=== PATIENT | female | born 1980 | race Caucasian/White ===

== ENCOUNTER 2016-08-19 11:03 | Observation (INO) | payer OTHER ==
[2016-08-19] MEDS ORDERED: SODIUM CHLORIDE 0.9% 1,000 ML IV STA ×2 (11:28)
[2016-08-19 11:56] LABS: Basophils % (A) 0 %; CH 34.7; CHCM 33.5; Eosinophils # (A) 0.1 k/uL (0-0.7); Eosinophils % (A) 2 %; HCT 45.3 % (34.0-46.0); HDW 2.13; HGB 15.1 gm/dL (11.4-16.0); Luc # (Auto) 0.12; Luc % (Auto) 2; Lymphocytes # (A) 1.8 k/uL (1.0-4.8); Lymphocytes % (A) 28 %; MCH 34.5 pg (25.0-35.0); MCHC 33.2 g/dL (31.0-37.0); MCV 103.9 fL (80.0-100.0); Macrocytosis Slight; Mean Platelet Volume 6.8; Monocytes # (A) 0.3 k/uL (0-1.0); Monocytes % (A) 4 %; Neutrophils # (A) 4.2 k/uL (1.3-7.7); Neutrophils % (A) 64 %; RBC 4.36 m/uL (3.80-5.40); RDW 12.2 % (11.5-15.5); WBC 6.5 k/uL (3.8-10.6); WBC (Perox) 6.37
[2016-08-19 12:02] LABS: Appearance,Urine Cloudy (Clear); Bacteria,Urine Rare /hpf; Bilirubin,Urine Negative (Negative); Glucose,Urine (UA) Negative (Negative); Ketones,Urine Negative (Negative); Leukocyte Esterase,Urine Small (Negative); Mucus,Urine Occasional /hpf; Nitrite,Urine Negative (Negative); Particle Count 3040; Protein,Urine Trace (Negative); RBC,Urine 1 /hpf (0-5); Specific Gravity,Urine 1.022 (1.001-1.035); Squamous Epithelial Cell,Urine 3 /hpf (0-4); UA Billing (MACRO vs. MICRO) MICRO; Urobilinogen,Urine <2.0 mg/dL (<2.0); WBC,Urine 3 /hpf (0-5)
[2016-08-19 12:12] LABS: ALT 21 U/L (9-52); AST 21 U/L (14-36); Alkaline Phosphatase 63 U/L (38-126); Amylase 57 U/L (30-110); Anion Gap 9 mmol/L; Blood Urea Nitrogen 13 mg/dL (7-17); Calcium 9.1 mg/dL (8.4-10.2); Carbon Dioxide 26 mmol/L (22-30); Chloride 106 mmol/L (98-107); Glucose 102 mg/dL (74-99); Non-African American GFR(MDRD) >60 (>60 ml/min/1.73 sqM); Potassium 4.1 mmol/L (3.5-5.1); Sodium 141 mmol/L (137-145); Total Bilirubin 0.6 mg/dL (0.2-1.3); Total Protein 7.2 g/dL (6.3-8.2)
--- NOTE | 2016-08-19 12:40 | XR ---
EXAMINATION TYPE: XR abdomen 2V DATE OF EXAM ORDERED: 08/19/2016 HISTORY: abdominal pain. COMPARISON: None. FINDINGS: The abdominal gas pattern is normal. There is no evidence of obstruction or free air. Ther e is a questionable phlebolith in the right hemipelvis. IMPRESSION: NO ACUTE INTRA-ABDOMINAL ABNORMALITY.
--- NOTE | 2016-08-19 12:41 | ED ---
General Adult HPI - General Chief complaint: Abdominal Pain Stated complaint: side pain Time Seen by Provider: 08/19/16 11:17 Source: patient Mode of arrival: ambulatory Limitations: no limitations - History of Present Illness Initial comments: History of present illness and chief complaint this is a 35-year-old female here with complaint of abdominal pain toward the right lower quadrant for 3 days and getting worse. No nausea no vomiting no diarrhea. She has decreased appetite and she has had some sweats. Denies frequency urgency or dysuria. The urine to her does darker. - Related Data Home Medications Medication Instructions Recorded Confirmed Norgestimate-Ethinyl Estradiol 1 tab PO HS 08/19/16 08/19/16 [Mononessa 28 Tablet] Allergies Allergy/AdvReac Type Severity Reaction Status Date / Time No Known Allergies Allergy Verified 08/19/16 11:20 Review of Systems ROS Statement: Those systems with pertinent positive or pertinent negative responses have been documented in the HPI. Review of systems no headache no visual acuity changes no sore throat no chest pain or shortness of breath no flank pain. Her discomfort is to the right side of the abdomen as moved down slightly toward the right lower quadrant. No lower extremity pain no nausea vomiting or diarrhea. No neuro deficits. All systems are reviewed. Past medical problem significant for urinary tract infections and kidney stones in the past. Surgeries 1 and adhesions in the right lower quadrant had laparoscopic repair. Family history negative ALLERGIES none. Patient does smoke strongly encouraged stop denies alcohol use ROS Other: All systems not noted in ROS Statement are negative. Past Medical History Past Medical History: No Reported History History of Any Multi-Drug Resistant Organisms: None Reported Past Surgical History: Section Additional Past Surgical History / Comment(s): Abdominal Laproscopy Past Anesthesia/Blood Transfusion Reactions: No Reported Reaction Past Psychological History: No Psychological Hx Reported Smoking Status: Current every day smoker Past Alcohol Use History: None Reported Past Drug Use History: None Reported - Past Family History Father Family Medical History: No Reported History General Exam - General Exam Comments Initial Comments: General: The patient is awake and alert, complaining of right lower abdominal pain getting progressively worse over 3 days. Decreased appetite. No nausea no vomiting no diarrhea. Vital signs temp 97.5 pulse 93 respiratory rate 20 pulse ox 98% room air blood pressure 122/58. Eye: Pupils are equal, round and reactive to light, extra-ocular movements are intact ; there is normal conjunctiva bilaterally. No signs of icterus. Ears, nose, mouth and throat: There are moist mucous membranes and no oral lesions. Neck: The neck is supple, there is no tenderness, no anterior cervical lymphadenopathy , thyroid not enlarged. Cardiovascular: There is a regular rate and rhythm. No murmur, rub or gallop is appreciated. Respiratory: Lungs are clear to auscultation, respirations are non-labored, breath sounds are equal. No wheezes, stridor, rales, or rhonchi. Gastrointestinal: Abdomen is tender with palpation to the McBurney's point and lower. Denying nausea vomiting or diarrhea. She has had history of surgery for adhesions in this same area years ago. Voluntary guarding. Positive referred pain to the right lower quadrant, no rebound. No masses palpable. Denies vaginal discharge. Negative Santos sign Back: There is no tenderness to palpation in the midline. There is no obvious deformity. Musculoskeletal: Normal ROM, no tenderness, There is no pedal edema. There is no calf tenderness or swelling. Sensation intact. Pulses equal bilaterally 2+. Neurological: No complaint of any evidence of any neurological deficits. Skin: Skin is warm and dry and no rashes or lesions are noted. Psychiatric: Cooperative, appropriate mood & affect, normal judgment. Limitations: no limitations Course Vital Signs 08/19/16 08/19/16 11:05 15:23 Temperature 97.5 F L 98.2 F Pulse Rate 93 57 L Respiratory 20 16 Rate Blood Pressure 122/58 118/62 O2 Sat by Pulse 98 100 Oximetry Medical Decision Making - Medical Decision Making Medical decision making; patient's white count 6.5 hemoglobin 15 hematocrit of 45 deficits. 0.1 with a BUN 13 creatinine 0.7 with a GFR greater than 60. Plasma lactic acid normal 0.2. Urine showed 1 red 3 whites. Urine test negative. X-rays of the abdomen were done and reviewed by radiologist his impression is abdominal gas pattern is normal. There is no evidence of obstruction or free air. There is a questionable phlebolith in the right hemipelvis. Impression; no acute intra-abdominal abnormality. As read by Dr. Kaminski CT the abdomen was done without oral contrast because of high suspicion for kidney stone pain. The radiologist's findings include liver pain pancreas gallbladder adrenal glands all normal. Kidneys no masses are evident. No hydronephrosis present. No cysts are present. There is a 0.3 cm nonobstructing inferior pole renal stone on the left. Inferior vena cava normal. CT of the pelvis found the appendix was normal as visualized. Uterus appears normal, adnexal regions are normal. Multiple phleboliths within the pelvis. Osseous structuressuspicious lytic sclerotic lesions. Also loops of bowel within the abdomen and pelvis are normal. Studies without oral contrast and evaluation a few diverticuli may be present. Impression; 1) nonobstructing inferior pole left renal stone. 2) diverticulosis without acute diverticulitis. Reexamination of the patient still finds discomfort in the right lower abdomen well below McBurney's point. again no rebound or referred pain. Patient still has discomfort in that area. I discussed the case with Dr. Ellison, her [employer]. Patient will be admitted for observation to Dr. Ellison. - Lab Data Result diagrams: 08/19/16 11:42 08/19/16 11:42 Lab Results 08/19/16 08/19/16 08/19/16 Range/Units 11:42 11:42 11:42 WBC 6.5 (3.8-10.6) k/uL RBC 4.36 (3.80-5.40) m/uL Hgb 15.1 (11.4-16.0) gm/dL Hct 45.3 (34.0-46.0) % MCV 103.9 H (80.0-100.0) fL MCH 34.5 (25.0-35.0) pg MCHC 33.2 (31.0-37.0) g/dL RDW 12.2 (11.5-15.5) % Plt Count 256 (150-450) k/uL Neutrophils % 64 % Lymphocytes % 28 % Monocytes % 4 % Eosinophils % 2 % Basophils % 0 % Neutrophils # 4.2 (1.3-7.7) k/uL Lymphocytes # 1.8 (1.0-4.8) k/uL Monocytes # 0.3 (0-1.0) k/uL Eosinophils # 0.1 (0-0.7) k/uL Basophils # 0.0 (0-0.2) k/uL Macrocytosis Slight Sodium 141 (137-145) mmol/L Potassium 4.1 (3.5-5.1) mmol/L Chloride 106 (98-107) mmol/L Carbon Dioxide 26 (22-30) mmol/L Anion Gap 9 mmol/L BUN 13 (7-17) mg/dL Creatinine 0.71 (0.52-1.04) mg/dL Est GFR (MDRD) Af Amer >60 (>60 ml/min/1.73 sqM) Est GFR (MDRD) Non-Af >60 (>60 ml/min/1.73 sqM) Glucose 102 H (74-99) mg/dL Plasma Lactic Acid Juve (0.7-2.0) mmol/L Calcium 9.1 (8.4-10.2) mg/dL Total Bilirubin 0.6 (0.2-1.3) mg/dL AST 21 (14-36) U/L ALT 21 (9-52) U/L Alkaline Phosphatase 63 (38-126) U/L Total Protein 7.2 (6.3-8.2) g/dL Albumin 4.2 (3.5-5.0) g/dL Amylase 57 (30-110) U/L Lipase 85 (23-300) U/L Urine Color Urine Appearance (Clear) Urine pH (5.0-8.0) Ur Specific [place] (1.001-1.035) Urine Protein (Negative) Urine Glucose (UA) (Negative) Urine Ketones (Negative) Urine Blood (Negative) Urine Nitrite (Negative) Urine Bilirubin (Negative) Urine Urobilinogen (<2.0) mg/dL Ur Leukocyte Esterase (Negative) Urine RBC (0-5) /hpf Urine WBC (0-5) /hpf Ur Squamous Epith Cells (0-4) /hpf Urine Bacteria (None) /hpf Urine Mucus (None) /hpf Urine HCG, Qual Not Detected (Not Detectd) 08/19/16 08/19/16 Range/Units 11:42 11:42 WBC (3.8-10.6) k/uL RBC (3.80-5.40) m/uL Hgb (11.4-16.0) gm/dL Hct (34.0-46.0) % MCV (80.0-100.0) fL MCH (25.0-35.0) pg MCHC (31.0-37.0) g/dL RDW (11.5-15.5) % Plt Count (150-450) k/uL Neutrophils % % Lymphocytes % % Monocytes % % Eosinophils % % Basophils % % Neutrophils # (1.3-7.7) k/uL Lymphocytes # (1.0-4.8) k/uL Monocytes # (0-1.0) k/uL Eosinophils # (0-0.7) k/uL Basophils # (0-0.2) k/uL Macrocytosis Sodium (137-145) mmol/L Potassium (3.5-5.1) mmol/L Chloride (98-107) mmol/L Carbon Dioxide (22-30) mmol/L Anion Gap mmol/L BUN (7-17) mg/dL Creatinine (0.52-1.04) mg/dL Est GFR (MDRD) Af Amer (>60 ml/min/1.73 sqM) Est GFR (MDRD) Non-Af (>60 ml/min/1.73 sqM) Glucose (74-99) mg/dL Plasma Lactic Acid Juve 1.2 (0.7-2.0) mmol/L Calcium (8.4-10.2) mg/dL Total Bilirubin (0.2-1.3) mg/dL AST (14-36) U/L ALT (9-52) U/L Alkaline Phosphatase (38-126) U/L Total Protein (6.3-8.2) g/dL Albumin (3.5-5.0) g/dL Amylase (30-110) U/L Lipase (23-300) U/L Urine Color Yellow Urine Appearance Cloudy H (Clear) Urine pH 6.0 (5.0-8.0) Ur Specific [place] 1.022 (1.001-1.035) Urine Protein Trace H (Negative) Urine Glucose (UA) Negative (Negative) Urine Ketones Negative (Negative) Urine Blood Negative (Negative) Urine Nitrite Negative (Negative) Urine Bilirubin Negative (Negative) Urine Urobilinogen <2.0 (<2.0) mg/dL Ur Leukocyte Esterase Small H (Negative) Urine RBC 1 (0-5) /hpf Urine WBC 3 (0-5) /hpf Ur Squamous Epith Cells 3 (0-4) /hpf Urine Bacteria Rare H (None) /hpf Urine Mucus Occasional H (None) /hpf Urine HCG, Qual (Not Detectd) Disposition Clinical Impression: Abdominal pain Disposition: ADMITTED IP TO THIS HOSP Condition: Stable Referrals: Fran Henry III, MD [Primary Care Provider] - 1-2 days
[2016-08-19] MEDS ORDERED: KETOROLAC 30 MG/ML 1 ML VIAL IVP STA (13:04)
--- NOTE | 2016-08-19 13:44 | CT ---
EXAMINATION TYPE: CT abdomen pelvis wo con DATE OF EXAM: 08/19/2016 COMPARISON: NONE INDICATION: Rt sided pain DLP: 248.5 mGycm, Automated exposure control for dose reduction was used. CONTRAST: None Study performed without Oral Contrast TECHNIQUE: Axial images were obtained from above the diaphragm to the pubic rami in the axial plane a t 5 mm thick sections. Reconstructed images are reviewed on the computer in the coronal plane. FINDINGS: Limited CT sections are obtained the lung bases. The lung bases are clear. CT ABDOMEN: Liver: Normal Spleen: Normal Pancreas: Normal Adrenal glands: The adrenal glands are normal. Gallbladder: Normal Kidneys: No masses are evident. No hydronephrosis is present. No cysts are present. There is a 0.3 cm nonobstructing inferior pole renal stone on the left. Aorta: Normal Inferior vena cava: Normal. CT PELVIS: Loops of bowel within the abdomen and pelvis are normal. Studies without oral contrast limiting e valuation. A few diverticuli may be present. Appendix: Normal as visualized Urinary bladder: Decompressed limiting evaluation. Genitourinary structures: Uterus appears normal. Adnexal regions are normal. Multiple phleboliths wit hin the pelvis. Osseous structures: No suspicious lytic or sclerotic lesions. IMPRESSIONS: 1. Nonobstructing inferior pole left renal stone. 2. Diverticulosis without acute diverticulitis.
--- NOTE | 2016-08-19 15:19 | US ---
EXAMINATION TYPE: US pelvic complete DATE OF EXAM: 08/19/2016 COMPARISON: Previous study dated 04/17/2013. CLINICAL HISTORY: RLQ pain, hx R ovarian adhesions. Pelvic pain x 3 days, 1 , h/o ovarian c ysts TECHNIQUE: TV Date of LMP: 08/09/2016 EXAM MEASUREMENTS: Uterus: 9.1 x 5.3 x 4.9 cm Endometrial Stripe: 0.6 cm Right Ovary: 2.7 x 2.2 x 1.2 cm Left Ovary: 2.8 x 2.7 x 1.8 cm 1. Uterus: Anteverted wnl 2. Endometrium: wnl 3. Right Ovary: wnl 4. Left Ovary: wnl Spectral, color and waveform doppler imaging shows good arterial and venous flow within the ovaries ; there is no evidence for ovarian torsion. 5. Bilateral Adnexa: wnl 6. Posterior cul-de-sac: wnl IMPRESSION: NORMAL PELVIC ULTRASOUND.
[2016-08-19] MEDS ORDERED: NALOXONE 0.4 MG/ML 1 ML VIAL IV PRN (16:00)
[2016-08-19] MEDS ORDERED: ONDANSETRON 4 MG/2 ML VIAL IVP PRN (16:00)
--- NOTE | 2016-08-19 17:13 | P.HPOB ---
History of Present Illness H&P Date: 08/19/16 Chief Complaint: Right flank and lower quadrant pain This is a 35-year-old 2 para 2 woman with a 3 day history of right side and right lower abdominal pain. This has been progressively worsening which led her to present to the emergency room. She denies fevers or chills, nausea or vomiting. She initially had some dysuria 2 days ago however this has improved with oral hydration and cranberry juice. She denies blood in the stool or urine. Her menses are regular on an oral contraceptive pill and her last menstrual period was 1 week ago and she reports this was very normal. She denies vaginal bleeding or discharge. No new sexual partner or exposure. Evaluation in the emergency room was essentially negative. CT without contrast of abdomen and pelvis showed diverticulosis without evidence of diverticulitis and a left nonobstructing renal calculus. The appendix appeared normal on the scan. Transvaginal pelvic ultrasound also was entirely negative. There was no free fluid in the pelvis, no adnexal or ovarian abnormalities and the uterus appeared normal. Abdominal x-ray shows normal bowel gas pattern. Patient's gynecologic history is significant for a diagnostic laparoscopy over 10 years ago at which time she apparently had some pelvic adhesions that were addressed. She had a primary low transverse section in April 2015. Review of the operative report describes normal uterus, tubes and ovaries at that time without evidence of pelvic adhesions or abnormalities. Currently she describes her pain as involving the right flank and right mid abdomen and down into the right suprapubic region. Review of Systems Constitutional: Denies chills, Denies fever, Denies sweats Cardiovascular: Denies chest pain, Denies shortness of breath Respiratory: Denies cough Gastrointestinal: Reports abdominal pain, Denies BRBPR, Denies change in bowel habits, Denies diarrhea, Denies heartburn, Denies nausea, Denies vomiting Genitourinary: Reports dysuria, Denies abnormal vaginal bleeding, Denies dysmenorrhea, Denies genital sores, Denies urgency, Denies vaginal discharge Menstruation: Reports period normal Musculoskeletal: Reports low back pain Integumentary: Denies rash Neurological: Denies headaches Past Medical History Past Medical History: No Reported History History of Any Multi-Drug Resistant Organisms: None Reported Past Surgical History: Section Additional Past Surgical History / Comment(s): Abdominal Laproscopy Past Anesthesia/Blood Transfusion Reactions: No Reported Reaction Past Psychological History: No Psychological Hx Reported Smoking Status: Current every day smoker Past Alcohol Use History: None Reported Past Drug Use History: None Reported - Past Family History Father Family Medical History: No Reported History Medications and Allergies Home Medications Medication Instructions Recorded Confirmed Type Norgestimate-Ethinyl Estradiol 1 tab PO HS 08/19/16 08/19/16 History [Mononessa 28 Tablet] Allergies Allergy/AdvReac Type Severity Reaction Status Date / Time No Known Allergies Allergy Verified 08/19/16 11:20 Exam - Vital Signs Vital signs: Vital Signs Temp Pulse Resp BP Pulse Ox 08/19/16 15:23 98.2 F 57 L 16 118/62 100 08/19/16 11:05 97.5 F L 93 20 122/58 98 Intake and Output 08/19/16 08/19/16 08/19/16 06:59 14:59 22:59 Other: Weight 61.689 kg Patient Weight 08/20/16 06:59 Weight 61.689 kg This is a somewhat uncomfortable-appearing, female in no acute distress. HEENT exam is negative for palpable lymphadenopathy. The heart is a regular rate. The breathing is unlabored. Her abdomen is slim soft and nondistended. She has pain to palpation from the pubic symphysis to the right costal margin. There is no rebound or guarding. She has right CVA tenderness. There are no palpable masses. She has full range of motion in the extremities. No unusual rashes, swelling or edema of the extremities. Pelvic examination is deferred. Neurologically she is grossly intact with no focal deficits. Results Result Diagrams: 08/19/16 11:42 08/19/16 11:42 Abnormal Lab Results - Last 24 Hours (Table) 08/19/16 08/19/16 08/19/16 Range/Units 11:42 11:42 11:42 MCV 103.9 H (80.0-100.0) fL Glucose 102 H (74-99) mg/dL Urine Appearance Cloudy H (Clear) Urine Protein Trace H (Negative) Ur Leukocyte Esterase Small H (Negative) Urine Bacteria Rare H (None) /hpf Urine Mucus Occasional H (None) /hpf Microbiology - Last 24 Hours (Table) 08/19/16 11:42 Urine Culture - Preliminary Urine,Voided CT scan - abdomen: report reviewed CT scan - pelvis: report reviewed US - abdomen: report reviewed Assessment and Plan (1) Abdominal pain Narrative/Plan: Nonspecific right lower quadrant abdominal pain. Imaging is negative for evidence of acute appendicitis or gynecologic abnormality. She does have a remote history of pelvic adhesive disease in 2005. No evidence of adhesive disease at time of section one year ago. Plan at this point is for observation. We will repeat CBC this evening and in the morning to follow serial white blood cell count. Her urinalysis did show small leukocyte Estrace therefore we will treat for urinary tract infection. Status: Acute (2) Tobacco abuse Status: Acute
[2016-08-19 17:41] LABS: Basophils % (A) 1 %; CH 34.7; CHCM 32.5; Eosinophils # (A) 0.1 k/uL (0-0.7); Eosinophils % (A) 1 %; HCT 41.1 % (34.0-46.0); HDW 2.24; HGB 13.2 gm/dL (11.4-16.0); Luc # (Auto) 0.12; Luc % (Auto) 2; Lymphocytes # (A) 2.1 k/uL (1.0-4.8); Lymphocytes % (A) 34 %; MCH 34.4 pg (25.0-35.0); MCHC 32.1 g/dL (31.0-37.0); Macrocytosis Moderate; Mean Platelet Volume 7.8; Monocytes # (A) 0.3 k/uL (0-1.0); Monocytes % (A) 5 %; Neutrophils # (A) 3.4 k/uL (1.3-7.7); Neutrophils % (A) 57 %; RBC 3.84 m/uL (3.80-5.40); RDW 12.6 % (11.5-15.5); WBC (Perox) 6.09
[2016-08-19 17:52] VITALS: BMI 21.2
[2016-08-19] MEDS: Acetaminophen-Codeine 300-30mg TAB PO PRN (17:58)
[2016-08-19] MEDS: NICOTINE 14MG/24HR PATCH TRANSDERM SCH (18:27)
[2016-08-19] MEDS ORDERED: NORGESTIMATE-ETHINYL ESTRADIOL 1 EACH TABLET PO SCH (21:00)
[2016-08-19] MEDS: KETOROLAC 30 MG/ML 1 ML VIAL IVP PRN (21:01)
[2016-08-19] MEDS: NITROFURANTOIN MONOHYD/M-CRYST 100 MG CAP PO SCH (21:02)
[2016-08-19] MEDS: SODIUM CHLORIDE 0.9% 1,000 ML IV SCH (21:06)
[2016-08-20] MEDS: Acetaminophen-Codeine 300-30mg TAB PO PRN ×4 (00:06→23:58)
[2016-08-20] MEDS: SODIUM CHLORIDE 0.9% 1,000 ML IV SCH ×3 (06:12→23:59)
[2016-08-20] MEDS: KETOROLAC 30 MG/ML 1 ML VIAL IVP PRN ×3 (06:13→23:58)
[2016-08-20 07:23] LABS: Basophils % (A) 0 %; CH 33.9; CHCM 33.1; Eosinophils # (A) 0.1 k/uL (0-0.7); Eosinophils % (A) 2 %; HCT 37.8 % (34.0-46.0); HDW 2.18; HGB 12.5 gm/dL (11.4-16.0); Luc # (Auto) 0.13; Luc % (Auto) 2; Lymphocytes # (A) 2.5 k/uL (1.0-4.8); Lymphocytes % (A) 45 %; MCHC 33.1 g/dL (31.0-37.0); MCV 102.8 fL (80.0-100.0); Macrocytosis Slight; Mean Platelet Volume 7.2; Monocytes # (A) 0.2 k/uL (0-1.0); Monocytes % (A) 4 %; Neutrophils # (A) 2.6 k/uL (1.3-7.7); Neutrophils % (A) 46 %; RBC 3.68 m/uL (3.80-5.40); RDW 11.8 % (11.5-15.5); WBC 5.6 k/uL (3.8-10.6); WBC (Perox) 5.92
[2016-08-20] MEDS: NITROFURANTOIN MONOHYD/M-CRYST 100 MG CAP PO SCH ×2 (07:58→23:58)
[2016-08-20] MEDS: NICOTINE 14MG/24HR PATCH TRANSDERM SCH (07:58)
--- NOTE | 2016-08-20 07:59 | P.PN ---
Subjective Principal diagnosis: Right lower quadrant pain Complaining of nausea this morning, no vomiting. Her pain is a 3 out of 10 and still in the right flank and right lower quadrant. No hematuria or dysuria. No constipation or diarrhea. No abnormal vaginal bleeding or discharge. She does recall that she self treated with Keflex prior to presentation to the emergency room for symptoms of urinary tract infection. Objective - Vital Signs Vital signs: Vital Signs Temp 97.5 F L 08/20/16 06:18 Pulse 58 L 08/20/16 06:18 Resp 18 08/20/16 06:18 BP 111/71 08/20/16 06:18 Pulse Ox 99 08/19/16 21:14 Intake & Output 08/19/16 08/20/16 08/20/16 18:59 06:59 18:59 Intake Total 600 Balance 600 Weight 61.689 kg Intake: Oral 600 Other: # Voids 1 - Constitutional General appearance: Present: no acute distress - Respiratory Respiratory: bilateral: CTA - Cardiovascular Rhythm: regular - Gastrointestinal General gastrointestinal: Present: normal bowel sounds, soft, tenderness (In right lower quadrant and flank. No rebound or guarding. No suprapubic tenderness). Absent: distended - Psychiatric Psychiatric: Present: appropriate affect - Labs CBC & Chem 7: 08/20/16 07:07 08/19/16 11:42 Labs: Abnormal Lab Results - Last 24 Hours (Table) 08/19/16 08/19/16 08/19/16 Range/Units 11:42 11:42 11:42 RBC (3.80-5.40) m/uL MCV 103.9 H (80.0-100.0) fL Glucose 102 H (74-99) mg/dL Urine Appearance Cloudy H (Clear) Urine Protein Trace H (Negative) Ur Leukocyte Esterase Small H (Negative) Urine Bacteria Rare H (None) /hpf Urine Mucus Occasional H (None) /hpf 08/19/16 08/20/16 Range/Units 17:30 07:07 RBC 3.68 L (3.80-5.40) m/uL MCV 107.0 H 102.8 H (80.0-100.0) fL Glucose (74-99) mg/dL Urine Appearance (Clear) Urine Protein (Negative) Ur Leukocyte Esterase (Negative) Urine Bacteria (None) /hpf Urine Mucus (None) /hpf Microbiology - Last 24 Hours (Table) 08/19/16 11:42 Urine Culture - Preliminary Urine,Voided Assessment and Plan (1) Abdominal pain Narrative/Plan: She continues to have right lower quadrant abdominal pain. Plan is to consult general surgery for evaluation and recommendations regarding possible appendicitis. Serial white counts are negative and she is afebrile however her pain persists in this area. Based on imaging there is no acute appendicitis nor gynecologic process. Plan is discussed with the patient and she is in agreement. Status: Acute (2) Tobacco abuse Status: Acute (3) UTI (urinary tract infection) Narrative/Plan: Partially treated prior to admission with Keflex. Currently on Macrobid. Status: Acute
[2016-08-20 08:46] LABS: ALT 25 U/L (9-52); AST 16 U/L (14-36); Alkaline Phosphatase 50 U/L (38-126); Anion Gap 6 mmol/L; Blood Urea Nitrogen 9 mg/dL (7-17); Calcium 8.1 mg/dL (8.4-10.2); Carbon Dioxide 23 mmol/L (22-30); Chloride 113 mmol/L (98-107); Glucose 81 mg/dL (74-99); Non-African American GFR(MDRD) >60 (>60 ml/min/1.73 sqM); Potassium 4.1 mmol/L (3.5-5.1); Sodium 142 mmol/L (137-145); Total Bilirubin 0.3 mg/dL (0.2-1.3); Total Protein 5.3 g/dL (6.3-8.2)
--- NOTE | 2016-08-20 08:53 | P.GSCN ---
History of Present Illness Consult date: 08/20/16 Reason for Consult: Right lower quadrant pain History of present illness: This is a 35-year-old female who's had complaints of right lower quadrant pain patient states she's had pain right lower quadrant for approximately 48 hours. The pain is significant and states her pain was a 10 out of 10 prior to arriving at the hospital. With pain medications the patient states her pain is a 3 out of 10. Significant nausea or anorexia. Past Medical History Past Medical History: No Reported History History of Any Multi-Drug Resistant Organisms: None Reported Past Surgical History: Section Additional Past Surgical History / Comment(s): Abdominal Laproscopy Past Anesthesia/Blood Transfusion Reactions: No Reported Reaction Past Psychological History: No Psychological Hx Reported Smoking Status: Current every day smoker Past Alcohol Use History: None Reported Past Drug Use History: None Reported - Past Family History Father Family Medical History: No Reported History Medications and Allergies Home Medications Medication Instructions Recorded Confirmed Type Norgestimate-Ethinyl Estradiol 1 tab PO HS 08/19/16 08/19/16 History [Mononessa 28 Tablet] Allergies Allergy/AdvReac Type Severity Reaction Status Date / Time No Known Allergies Allergy Verified 08/19/16 11:20 Surgical - Exam Vital Signs Temp Pulse Resp BP Pulse Ox 97.5 F L 93 20 122/58 98 08/19/16 11:05 08/19/16 11:05 08/19/16 11:05 08/19/16 11:05 08/19/16 11:05 - General well developed, no distress - Eyes PERRL - ENT normal pinna - Neck no masses - Respiratory normal expansion - Cardiovascular Rhythm: regular - Abdomen Evidence soft. There is tenderness in the right lower quadrant. There is no rebound or guarding. Abdomen: soft Results - Labs 08/20/16 07:07 08/20/16 07:07 Abnormal Lab Results - Last 24 Hours (Table) 08/19/16 08/19/16 08/19/16 Range/Units 11:42 11:42 11:42 RBC (3.80-5.40) m/uL MCV 103.9 H (80.0-100.0) fL Chloride (98-107) mmol/L Glucose 102 H (74-99) mg/dL Calcium (8.4-10.2) mg/dL Total Protein (6.3-8.2) g/dL Albumin (3.5-5.0) g/dL Urine Appearance Cloudy H (Clear) Urine Protein Trace H (Negative) Ur Leukocyte Esterase Small H (Negative) Urine Bacteria Rare H (None) /hpf Urine Mucus Occasional H (None) /hpf 08/19/16 08/20/16 08/20/16 Range/Units 17:30 07:07 07:07 RBC 3.68 L (3.80-5.40) m/uL MCV 107.0 H 102.8 H (80.0-100.0) fL Chloride 113 H (98-107) mmol/L Glucose (74-99) mg/dL Calcium 8.1 L (8.4-10.2) mg/dL Total Protein 5.3 L (6.3-8.2) g/dL Albumin 3.0 L (3.5-5.0) g/dL Urine Appearance (Clear) Urine Protein (Negative) Ur Leukocyte Esterase (Negative) Urine Bacteria (None) /hpf Urine Mucus (None) /hpf Microbiology - Last 24 Hours (Table) 08/19/16 11:42 Urine Culture - Preliminary Urine,Voided Diabetes panel 08/19/16 08/20/16 Range/Units 11:42 07:07 Sodium 141 142 (137-145) mmol/L Potassium 4.1 4.1 (3.5-5.1) mmol/L Chloride 106 113 H (98-107) mmol/L Carbon Dioxide 26 23 (22-30) mmol/L BUN 13 9 (7-17) mg/dL Creatinine 0.71 0.70 (0.52-1.04) mg/dL Glucose 102 H 81 (74-99) mg/dL Calcium 9.1 8.1 L (8.4-10.2) mg/dL AST 21 16 (14-36) U/L ALT 21 25 (9-52) U/L Alkaline Phosphatase 63 50 (38-126) U/L Total Protein 7.2 5.3 L (6.3-8.2) g/dL Albumin 4.2 3.0 L (3.5-5.0) g/dL Calcium panel 08/19/16 08/20/16 Range/Units 11:42 07:07 Calcium 9.1 8.1 L (8.4-10.2) mg/dL Albumin 4.2 3.0 L (3.5-5.0) g/dL Pituitary panel 08/19/16 08/20/16 Range/Units 11:42 07:07 Sodium 141 142 (137-145) mmol/L Potassium 4.1 4.1 (3.5-5.1) mmol/L Chloride 106 113 H (98-107) mmol/L Carbon Dioxide 26 23 (22-30) mmol/L BUN 13 9 (7-17) mg/dL Creatinine 0.71 0.70 (0.52-1.04) mg/dL Glucose 102 H 81 (74-99) mg/dL Calcium 9.1 8.1 L (8.4-10.2) mg/dL Adrenal panel 08/19/16 08/20/16 Range/Units 11:42 07:07 Sodium 141 142 (137-145) mmol/L Potassium 4.1 4.1 (3.5-5.1) mmol/L Chloride 106 113 H (98-107) mmol/L Carbon Dioxide 26 23 (22-30) mmol/L BUN 13 9 (7-17) mg/dL Creatinine 0.71 0.70 (0.52-1.04) mg/dL Glucose 102 H 81 (74-99) mg/dL Calcium 9.1 8.1 L (8.4-10.2) mg/dL Total Bilirubin 0.6 0.3 (0.2-1.3) mg/dL AST 21 16 (14-36) U/L ALT 21 25 (9-52) U/L Alkaline Phosphatase 63 50 (38-126) U/L Total Protein 7.2 5.3 L (6.3-8.2) g/dL Albumin 4.2 3.0 L (3.5-5.0) g/dL Assessment and Plan Plan: Right lower quadrant pain. Patient's CAT scan shows evidence of a normal appendix. The patient was observed. We'll start on clear liquid diet. If her pain worsens she may require a diagnostic laparoscopy.
[2016-08-21 00:05] VITALS: BP 123/65; PULSE 56; RESP 16; TEMP 97
--- NOTE | 2016-08-21 07:15 | P.PN ---
Subjective Principal diagnosis: Right lower quadrant pain She was able to sleep throughout the night. She reports her pain is between 83 and 5 out of 10. It is controlled with oral Tylenol with codeine. She is tolerating clears and is hungry. She reports her pain is right flank radiating to the umbilicus and right lower quadrant. She has not had a bowel movement since admission. She denies dysuria or hematuria. Objective - Vital Signs Vital signs: Vital Signs Temp 97.0 F L 08/20/16 23:00 Pulse 56 L 08/20/16 23:00 Resp 16 08/20/16 23:00 BP 123/65 08/20/16 23:00 Pulse Ox 100 08/20/16 23:00 Intake & Output 08/20/16 08/21/16 08/21/16 18:59 06:59 18:59 Weight 61.689 kg Other: Voiding Method Toilet # Voids 2 1 - Exam This is a pleasant and comfortable appearing female in no obvious distress. Targeted physical exam is performed. She has positive right CVA tenderness. The abdomen is soft to deep palpation. There is no rebound or guarding in any of the 4 quadrants. She has no suprapubic pain. She has normal bowel sounds. - Labs CBC & Chem 7: 08/20/16 07:07 08/20/16 07:07 Labs: Abnormal Lab Results - Last 24 Hours (Table) 08/20/16 08/20/16 Range/Units 07:07 07:07 RBC 3.68 L (3.80-5.40) m/uL MCV 102.8 H (80.0-100.0) fL Chloride 113 H (98-107) mmol/L Calcium 8.1 L (8.4-10.2) mg/dL Total Protein 5.3 L (6.3-8.2) g/dL Albumin 3.0 L (3.5-5.0) g/dL Microbiology - Last 24 Hours (Table) 08/19/16 11:42 Urine Culture - Final Urine,Voided Assessment and Plan (1) Abdominal pain Narrative/Plan: Pain today is more right flank and right mid abdominal area. She is a nonsurgical abdomen on exam. She is hungry and afebrile. Her pain is controlled with oral pain medications. She's had surgical consultation with recommendation for ongoing observation. I believe she is stable for discharge home with follow-up pending normal white blood cell count this morning and agreement from the general surgeon. She'll continue her course of antibiotics for urinary tract infection for total of 7 days. Status: Acute (2) Tobacco abuse Status: Acute (3) UTI (urinary tract infection) Status: Acute
[2016-08-21 08:41] LABS: Basophils % (A) 0 %; CH 34.1; CHCM 33.2; Eosinophils # (A) 0.1 k/uL (0-0.7); Eosinophils % (A) 1 %; HCT 38.8 % (34.0-46.0); HDW 2.19; HGB 12.7 gm/dL (11.4-16.0); Luc # (Auto) 0.08; Luc % (Auto) 2; Lymphocytes # (A) 2.1 k/uL (1.0-4.8); Lymphocytes % (A) 44 %; MCH 33.9 pg (25.0-35.0); MCHC 32.8 g/dL (31.0-37.0); MCV 103.2 fL (80.0-100.0); Macrocytosis Slight; Mean Platelet Volume 7.4; Monocytes # (A) 0.2 k/uL (0-1.0); Monocytes % (A) 5 %; Neutrophils # (A) 2.3 k/uL (1.3-7.7); Neutrophils % (A) 49 %; RBC 3.76 m/uL (3.80-5.40); RDW 11.9 % (11.5-15.5); WBC 4.8 k/uL (3.8-10.6); WBC (Perox) 4.96
[2016-08-21 08:55] LABS: ALT 26 U/L (9-52); AST 26 U/L (14-36); Alkaline Phosphatase 53 U/L (38-126); Anion Gap 8 mmol/L; Blood Urea Nitrogen 5 mg/dL (7-17); Calcium 8.3 mg/dL (8.4-10.2); Carbon Dioxide 23 mmol/L (22-30); Chloride 110 mmol/L (98-107); Glucose 78 mg/dL (74-99); Non-African American GFR(MDRD) >60 (>60 ml/min/1.73 sqM); Sodium 141 mmol/L (137-145); Total Bilirubin 1.2 mg/dL (0.2-1.3); Total Protein 5.7 g/dL (6.3-8.2)
--- NOTE | 2016-08-21 09:18 | P.PN ---
Progress Note - Text The patient states she feels slightly better. The pain is radiating to her right flank. On exam her vital signs are stable. Her abdomen soft. There is less tenderness in the right lower quadrant. Patiently discharged home today. She'll follow-up in the office 1 week.
[2016-08-21] MEDS: NITROFURANTOIN MONOHYD/M-CRYST 100 MG CAP PO SCH (10:35)
== END 2016-08-21 11:53 | disposition home or self-care (01) ==
LOC: EC 11:03 → 6PED 16:04
PROVIDERS: ADMIT Obstetrics & Gynecology; ATTEND Obstetrics & Gynecology
DX: K57.90 Diverticulosis of intestine, part unspecified, without perforation or abscess without bleeding (principal); N39.0 Urinary tract infection, site not specified; N20.0 Calculus of kidney; F17.200 Nicotine dependence, unspecified, uncomplicated; R30.0 Dysuria; M54.5 Low back pain; R11.0 Nausea; R63.0 Anorexia
CPT/HCPCS: 96361 ×9; 96374 ×2; 99285 ×2; 96376 ×2; 36415; 80053 ×3; 82150; 83605; 83690; 85025 ×3; 81001; 81025; 87086; 74020; 93975; 76830; 74176; G0378 ×3; S4990 ×2; J1885 ×2

== ENCOUNTER 2018-11-16 16:40 | Emergency (ER) | payer OTHER ==
[2018-11-16 16:49] VITALS: RESP 18
[2018-11-16] MEDS ORDERED: SODIUM CHLORIDE 0.9% 1,000 ML IV STA (17:39)
[2018-11-16] MEDS ORDERED: ONDANSETRON 4 MG/2 ML VIAL IVP STA (17:39)
[2018-11-16] MEDS ORDERED: MORPHINE SULFATE 4 MG/ML SYRINGE IV STA (17:39)
[2018-11-16 18:04] LABS: Appearance,Urine Cloudy (Clear); Bacteria,Urine Rare /hpf; Bilirubin,Urine Negative (Negative); Blood,Urine Negative (Negative); Color,Urine Yellow; Glucose,Urine (UA) Negative (Negative); Ketones,Urine 1+ (Negative); Leukocyte Esterase,Urine Small (Negative); Mucus,Urine Moderate /hpf; Nitrite,Urine Negative (Negative); Protein,Urine 1+ (Negative); RBC,Urine 1 /hpf (0-5); Specific Gravity,Urine 1.033 (1.001-1.035); Squamous Epithelial Cell,Urine 5 /hpf (0-4); Urobilinogen,Urine <2.0 mg/dL (<2.0); WBC,Urine 1 /hpf (0-5)
[2018-11-16 18:09] LABS: Basophils # (A) 0.1 k/uL (0-0.2); Basophils % (A) 1 %; Eosinophils # (A) 0.1 k/uL (0-0.7); Eosinophils % (A) 1 %; HCT 43.5 % (34.0-46.0); Lymphocytes # (A) 0.9 k/uL (1.0-4.8); Lymphocytes % (A) 14 %; MCH 34.1 pg (25.0-35.0); MCHC 34.5 g/dL (31.0-37.0); MCV 98.9 fL (80.0-100.0); Mean Platelet Volume 7.3; Monocytes # (A) 0.3 k/uL (0-1.0); Monocytes % (A) 5 %; Neutrophils % (A) 78 %; Platelet Count 218 k/uL (150-450); RDW 13.3 % (11.5-15.5); WBC 6.4 k/uL (3.8-10.6)
[2018-11-16 18:15] LABS: ALT 15 U/L (9-52); AST 21 U/L (14-36); African American GFR (CKD) >90 (>60 ml/min/1.73 sqM); Albumin 4.1 g/dL (3.5-5.0); Alkaline Phosphatase 61 U/L (38-126); Anion Gap 8 mmol/L; Blood Urea Nitrogen 15 mg/dL (7-17); Calcium 8.8 mg/dL (8.4-10.2); Carbon Dioxide 24 mmol/L (22-30); Chloride 107 mmol/L (98-107); Glucose 96 mg/dL (74-99); Potassium 3.6 mmol/L (3.5-5.1); Sodium 139 mmol/L (137-145); Total Bilirubin 0.4 mg/dL (0.2-1.3); Total Protein 6.9 g/dL (6.3-8.2)
--- NOTE | 2018-11-16 18:44 | CT ---
EXAMINATION TYPE: CT abdomen pelvis w con DATE OF EXAM: 11/16/2018 COMPARISON: 08/19/2016 HISTORY: Abdominal pain CT DLP: mGycm Automated exposure control for dose reduction was used. TECHNIQUE: Helical acquisition of images was performed from the lung bases through the pelvis. CONTRAST: The contrast was Isovue 100 mL. FINDINGS: Lung bases are clear. There is no pleural effusion. Heart size is normal. There is no pericardial eff usion. Liver spleen pancreas gallbladder appear normal. Bile ducts are not dilated. Stomach appears n ormal. There is no adrenal mass. Kidneys show satisfactory contrast opacification. There is no hydronephrosi s. There is no retroperitoneal adenopathy. There is small amount of free fluid in the cul-de-sac. The re is IUD in the uterine fundus in good position. There is no inguinal hernia. There is no mesenteric edema. There is no sign of a bowel obstruction. Appendix is not definitely seen. There is no sign of thickened appendix. Lumbar vertebra have normal alignment. Disc spaces are fairly normal. Bony pelvi s is intact. IMPRESSION: APPENDIX NOT SEEN. NO SIGN OF THICKENED APPENDIX. MINIMAL FREE FLUID IN THE PELVIS COULD BE PHYSIOLOG IC. No definite acute abnormality.
[2018-11-16 19:28] VITALS: BP 101/84; PULSE 64; TEMP 98.1
--- NOTE | 2018-11-16 19:32 | ED ---
General Adult HPI - General Source: patient, RN notes reviewed, old records reviewed Mode of arrival: ambulatory Limitations: no limitations <Yuriy Grijalva - Last Filed: 11/16/18 19:32> <Roxanne Camp - Last Filed: 11/23/18 13:57> - General Chief complaint: Abdominal Pain Stated complaint: Flank pain Time Seen by Provider: 11/16/18 17:32 - History of Present Illness Initial comments: 38-year-old female patient past medical history of abdominal laparoscopy to remove adhesions presents to ED complaining of right lower quadrant abdominal pain for 2 days. She does have nausea and diarrhea. Denies any emesis. Patient has an IUD denies any chance being . Denies any dysuria. Denies any other complaints. Systemic: Pt denies fatigue, fever/chills, rash. Pt denies weakness, night sweats, weight loss. Neuro: Pt denies headache, visual disturbances, syncope or pre-syncope. HEENT: Pt denies ocular discharge or irritation, otalgia, rhinorrhea, pharyngitis or notable lymphadenopathy. Cardiopulmonary: Pt denies chest pain, SOB, heart palpitations, dyspnea on exertion. : Pt denies dysuria, burning w/ urination, frequency/urgency. Denies new onset urinary or bowel incontinence. MSK: Pt denies myalgia, loss of strength or function in extremities. Neuro: Pt denies new onset weakness, paresthesias. (Yuriy Grijalva) - Related Data Home Medications Medication Instructions Recorded Confirmed No Known Home Medications 11/16/18 11/16/18 Allergies Allergy/AdvReac Type Severity Reaction Status Date / Time No Known Allergies Allergy Verified 11/16/18 17:31 Review of Systems ROS Other: All systems not noted in ROS Statement are negative. <Yuriy Grijalva - Last Filed: 11/16/18 19:32> ROS Other: All systems not noted in ROS Statement are negative. <Roxanne Camp - Last Filed: 11/23/18 13:57> ROS Statement: Those systems with pertinent positive or pertinent negative responses have been documented in the HPI. Past Medical History Past Medical History: No Reported History History of Any Multi-Drug Resistant Organisms: None Reported Past Surgical History: Section Additional Past Surgical History / Comment(s): Abdominal Laproscopy Past Anesthesia/Blood Transfusion Reactions: No Reported Reaction Past Psychological History: No Psychological Hx Reported Smoking Status: Current every day smoker Past Alcohol Use History: None Reported Past Drug Use History: None Reported - Past Family History Father Family Medical History: No Reported History <Yuriy Grijalva - Last Filed: 11/16/18 19:32> General Exam Limitations: no limitations <Yuriy Grijalva - Last Filed: 11/16/18 19:32> - General Exam Comments Initial Comments: Constitutional: NAD, AOX3, Pt has pleasant affect. HEENT: NC/AT, trachea midline, neck supple, no lymphadenopathy. Posterior pharynx non erythematous, without exudates. External ears appear normal, without discharge. Mucous membranes moist. Eyes PERRLA, EOM intact. There is no scleral icterus. No pallor noted. Cardiopulmonary: RRR, no murmurs, rubs or gallops, no JVD noted. Lungs CTAB in anterior and posterior dsouza. No peripheral edema. Abdominal exam: Abdomen soft and non-distended. Abdomen mildly tender to palpation in right lower quadrant. No other coreen of abdominal tenderness.. Bowel sounds active in LLQ. No hepatosplenomegaly. No ecchymosis Neuro: CN II-XII grossly intact. No nuchal rigidity. No raccon eyes, no teague sign, no hemotympanum. No cervical spinal tenderness. MSK: No posterior calf tenderness bilaterally, homans sign negative bilaterally. Posterior tibialis and radial pulse +2 bilaterally. Sensation intact in upper and lower extremities. Full active ROM in upper and lower extremities, 5/5 stregnth. (Yuriy Grijalva) Course Vital Signs 11/16/18 11/16/18 11/16/18 16:46 18:11 19:26 Temperature 98 F 98.1 F Pulse Rate 95 66 64 Respiratory 18 18 18 Rate Blood Pressure 93/56 97/62 101/84 O2 Sat by Pulse 100 100 97 Oximetry 11/16/18 19:37 Temperature 98.1 F Pulse Rate 64 Respiratory 18 Rate Blood Pressure 101/84 O2 Sat by Pulse 97 Oximetry Medical Decision Making - Lab Data Result diagrams: 11/16/18 18:00 11/16/18 18:00 <Yuriy Grijalva - Last Filed: 11/16/18 19:32> - Lab Data Result diagrams: 11/16/18 18:00 11/16/18 18:00 <Roxanne Camp - Last Filed: 11/23/18 13:57> - Medical Decision Making 38-year-old female patient past medical history of abdominal laparoscopy to remove adhesions presents to ED complaining of right lower quadrant abdominal pain for 2 days. She does have nausea and diarrhea. Denies any emesis. Patient has an IUD denies any chance being . Denies any dysuria. Denies any other complaints. Patient vital signs initially displayed very mild hypotension, improved after fluid administration. Laboratory investigations are non-impressive. CT abdomen and pelvis displayed no acute process. Appendix was not visualized, however no signs of appendicitis. Very small amount of free fluid in pelvis likely physiologic. Patient is likely experiencing a viral gastroenteritis 6 syndrome. Patient was recommended to follow-up with her DIALYSIS TECH surgeon. Will follow up with primary care brother tomorrow. Return to ER if condition worsens. Case discussed with Dr. Camp. (Yuriy Grijalva) I was available for consultation in the emergency department. The history and physical exam were done by the midlevel provider. I was consulted for this patient's care. I reviewed the case with the midlevel provider and based on their presentation of the patient, I agree with the assessment, medical decision making and plan of care as documented. The appendix is not visualized on CT. We discussed this with the patient. She will be discharged home but we discussed return parameters and the possibility of appendicitis remains without direct visualization. The patient understood. Chart was dictated using [employer] dictation software. Attempts were made to correct any dictation errors however some typographical errors may persist. (Roxanne Camp) - Lab Data Lab Results 11/16/18 11/16/18 11/16/18 Range/Units 17:45 17:45 18:00 WBC 6.4 (3.8-10.6) k/uL RBC 4.40 (3.80-5.40) m/uL Hgb 15.0 (11.4-16.0) gm/dL Hct 43.5 (34.0-46.0) % MCV 98.9 (80.0-100.0) fL MCH 34.1 (25.0-35.0) pg MCHC 34.5 (31.0-37.0) g/dL RDW 13.3 (11.5-15.5) % Plt Count 218 (150-450) k/uL Neutrophils % 78 % Lymphocytes % 14 % Monocytes % 5 % Eosinophils % 1 % Basophils % 1 % Neutrophils # 5.0 (1.3-7.7) k/uL Lymphocytes # 0.9 L (1.0-4.8) k/uL Monocytes # 0.3 (0-1.0) k/uL Eosinophils # 0.1 (0-0.7) k/uL Basophils # 0.1 (0-0.2) k/uL Sodium (137-145) mmol/L Potassium (3.5-5.1) mmol/L Chloride (98-107) mmol/L Carbon Dioxide (22-30) mmol/L Anion Gap mmol/L BUN (7-17) mg/dL Creatinine (0.52-1.04) mg/dL Est GFR (CKD-EPI)AfAm (>60 ml/min/1.73 sqM) Est GFR (CKD-EPI)NonAf (>60 ml/min/1.73 sqM) Glucose (74-99) mg/dL Plasma Lactic Acid Juve (0.7-2.0) mmol/L Calcium (8.4-10.2) mg/dL Total Bilirubin (0.2-1.3) mg/dL AST (14-36) U/L ALT (9-52) U/L Alkaline Phosphatase (38-126) U/L Total Protein (6.3-8.2) g/dL Albumin (3.5-5.0) g/dL Lipase (23-300) U/L Urine Color Yellow Urine Appearance Cloudy H (Clear) Urine pH 6.0 (5.0-8.0) Ur Specific [place] 1.033 (1.001-1.035) Urine Protein 1+ H (Negative) Urine Glucose (UA) Negative (Negative) Urine Ketones 1+ H (Negative) Urine Blood Negative (Negative) Urine Nitrite Negative (Negative) Urine Bilirubin Negative (Negative) Urine Urobilinogen <2.0 (<2.0) mg/dL Ur Leukocyte Esterase Small H (Negative) Urine RBC 1 (0-5) /hpf Urine WBC 1 (0-5) /hpf Ur Squamous Epith Cells 5 H (0-4) /hpf Urine Bacteria Rare H (None) /hpf Urine Mucus Moderate H (None) /hpf Urine HCG, Qual Not Detected (Not Detectd) 11/16/18 11/16/18 Range/Units 18:00 18:02 WBC (3.8-10.6) k/uL RBC (3.80-5.40) m/uL Hgb (11.4-16.0) gm/dL Hct (34.0-46.0) % MCV (80.0-100.0) fL MCH (25.0-35.0) pg MCHC (31.0-37.0) g/dL RDW (11.5-15.5) % Plt Count (150-450) k/uL Neutrophils % % Lymphocytes % % Monocytes % % Eosinophils % % Basophils % % Neutrophils # (1.3-7.7) k/uL Lymphocytes # (1.0-4.8) k/uL Monocytes # (0-1.0) k/uL Eosinophils # (0-0.7) k/uL Basophils # (0-0.2) k/uL Sodium 139 (137-145) mmol/L Potassium 3.6 (3.5-5.1) mmol/L Chloride 107 (98-107) mmol/L Carbon Dioxide 24 (22-30) mmol/L Anion Gap 8 mmol/L BUN 15 (7-17) mg/dL Creatinine 0.69 (0.52-1.04) mg/dL Est GFR (CKD-EPI)AfAm >90 (>60 ml/min/1.73 sqM) Est GFR (CKD-EPI)NonAf >90 (>60 ml/min/1.73 sqM) Glucose 96 (74-99) mg/dL Plasma Lactic Acid Juve 0.7 (0.7-2.0) mmol/L Calcium 8.8 (8.4-10.2) mg/dL Total Bilirubin 0.4 (0.2-1.3) mg/dL AST 21 (14-36) U/L ALT 15 (9-52) U/L Alkaline Phosphatase 61 (38-126) U/L Total Protein 6.9 (6.3-8.2) g/dL Albumin 4.1 (3.5-5.0) g/dL Lipase 88 (23-300) U/L Urine Color Urine Appearance (Clear) Urine pH (5.0-8.0) Ur Specific [place] (1.001-1.035) Urine Protein (Negative) Urine Glucose (UA) (Negative) Urine Ketones (Negative) Urine Blood (Negative) Urine Nitrite (Negative) Urine Bilirubin (Negative) Urine Urobilinogen (<2.0) mg/dL Ur Leukocyte Esterase (Negative) Urine RBC (0-5) /hpf Urine WBC (0-5) /hpf Ur Squamous Epith Cells (0-4) /hpf Urine Bacteria (None) /hpf Urine Mucus (None) /hpf Urine HCG, Qual (Not Detectd) Disposition Is patient prescribed a controlled substance at d/c from ED?: No <Yuriy Grijalva - Last Filed: 11/16/18 19:32> <Roxanne Camp - Last Filed: 11/23/18 13:57> Clinical Impression: Abdominal pain Disposition: HOME SELF-CARE Condition: Stable Instructions (If sedation given, give patient instructions): Abdominal Pain (ED) Additional Instructions: Patient to adhere to previously discussed treatment plan and will take medication(s) as directed. Patient to follow up with PCP in 1-2 days. Patient to return to ED if symptoms do not improve. Follow-up with primary care provider and fiscal manager tomorrow. Return here if condition worsens. Referrals: None,Stated [Primary Care Provider] - 1-2 days [place] DO [Doctor of Osteopathic Medicine] - 1-2 days
== END 2018-11-16 19:42 | disposition home or self-care (01) ==
LOC: EC 16:40
DX: R10.31 Right lower quadrant pain (principal); I95.9 Hypotension, unspecified; R11.0 Nausea; R19.7 Diarrhea, unspecified; F17.200 Nicotine dependence, unspecified, uncomplicated; Z97.5 Presence of (intrauterine) contraceptive device; Z98.890 Other specified postprocedural states
CPT/HCPCS: 99284; 96374; 96375; 96361; 36415; 80053; 83605; 83690; 85025; 81001; 81025; 74177; J2270; J2405; Q9967

== ENCOUNTER 2021-04-27 08:34 | Inpatient (IN) | payer OTHER ==
[2021-04-23 13:07] VITALS: BMI 21.1
[~2021-04-27 08:34] MED LIST: DEXAMETHASONE SOD PHOSPHATE 4 MG/ML 1 ML VIAL IV ONE; LACTATED RINGERS 1,000 ML IV SCH; LIDOCAINE 1% (10MG/ML) FOR IV START INTRADERMA PRN; MIDAZOLAM 2 MG/2 ML VIAL IV PRN; ONDANSETRON 4 MG/2 ML VIAL IVP ONE; Pre Op ABX Message 1 EACH MISC MISCELLANE ONE
[2021-04-27] MEDS ORDERED: SCOPOLAMINE 1 MG/72 HR PATCH TRANSDERM ONE (09:25)
[2021-04-27] MEDS ORDERED: ROCURONIUM 10 MG/ML (5 ML VIAL) IV ONE (09:55)
[2021-04-27] MEDS ORDERED: fentaNYL (PF) 50 MCG/ML 2 ML AMP ONE (09:55)
[2021-04-27] MEDS ORDERED: NEOSTIGMINE 1 MG/ML 10 ML VIAL ONE (09:55)
[2021-04-27] MEDS ORDERED: PROPOFOL 10 MG/ML 20 ML VIAL IV ONE (09:55)
[2021-04-27] MEDS ORDERED: GLYCOPYRROLATE 0.2 MG/ML 2 ML VIAL ONE (09:55)
[2021-04-27] MEDS ORDERED: LIDOCAINE 1% INJ 10MG/ML (20 ML MDV) ONE (09:55)
[2021-04-27] MEDS ORDERED: MIDAZOLAM 2 MG/2 ML VIAL ONE (09:55)
[2021-04-27] MEDS ORDERED: BUPIVACAINE (PF) 0.5% 30 ML VIAL SQ ONE ×2 (10:54)
--- NOTE | 2021-04-27 10:58 | P.GSCN ---
History of Present Illness Consult date: 04/27/21 Reason for Consult: Possible gastric injury History of present illness: I was called for an intraoperative consult. Dr. Ellison had explained she had difficulty obtaining pneumoperitoneum. She states that she placed the Veress needle into the peritoneal cavity twice. She stated that there was high pressure limiting on insufflation very quickly. She then placed a 5 mm optical trocar under direct vision into the. Cavity. And she noticed that the stomach was inflated like a balloon. Anesthesia then placed a nasogastric tube and decompressed stomach. I was asked to evaluate for possible gastric injury. The stomach was inspected laparoscopically. There appeared to be some evidence of injury to the stomach with some blood on the stomach wall near the lesser curve. At this point I recommended open repair and evaluation of the stomach. Past Medical History Past Medical History: No Reported History Additional Past Medical History / Comment(s): MIGRAINE HEADACHE, History of Any Multi-Drug Resistant Organisms: None Reported Past Surgical History: Section Additional Past Surgical History / Comment(s): Abdominal Laproscopy Past Anesthesia/Blood Transfusion Reactions: Motion Sickness Smoking Status: Current every day smoker - Past Family History Father Family Medical History: No Reported History Medications and Allergies Home Medications Medication Instructions Recorded Confirmed Type No Known Home Medications 11/16/18 04/27/21 History Allergies Allergy/AdvReac Type Severity Reaction Status Date / Time No Known Allergies Allergy Verified 04/27/21 09:01 Surgical - Exam Vital Signs Temp Pulse Resp BP Pulse Ox 97.6 F 60 18 104/59 100 04/27/21 09:10 04/27/21 09:10 04/27/21 09:10 04/27/21 09:10 04/27/21 09:10 Assessment and Plan Plan: Possible gastric injury. We'll perform open evaluation and possible repair.
--- NOTE | 2021-04-27 11:00 | P.OP ---
Date of Procedure: 04/27/21 Preoperative Diagnosis: Gastric injury Postoperative Diagnosis: Gastric injury Procedure(s) Performed: Exploratory laparotomy with gastrorrhaphy Anesthesia: JUAN Surgeon: Abhi Degroot Fishing Game Warden #1: Marivel Ellison Pathology: none sent Condition: stable Disposition: PACU Description of Procedure: The the patient had already received general endotracheal tube anesthesia. The trocar was withdrawn at the umbilicus. A laparotomy was performed in the upper midline. The pelvic cavity is opened. The stomach was grasped with Juvenal clamp and brought down into the laparotomy. At the midportion of the body of the stomach along the lesser curve there was evidence of 3 small perforations from the Veress needle. These were oversewn with 3-0 GI silk suture. The lesser sac was then entered by dividing the greater omentum. There was no evidence of any injury of the posterior wall of the stomach. No other injury was seen. At this point the fascia was closed with looped #[address] josue wells then proceeded with her tubal ligation. Please see her operative not e
[2021-04-27 11:40] VITALS: RESP 16
[2021-04-27] MEDS: HYDROmorphone 0.5 MG/0.5 ML SYRINGE IVP PRN ×4 (11:42→15:17)
--- NOTE | 2021-04-27 11:43 | P.OP ---
Date of Procedure: 04/27/21 Preoperative Diagnosis: Undesired fertility Intrauterine device Postoperative Diagnosis: Undesired fertility Intrauterine device Trocar injury to stomach Procedure(s) Performed: Laparoscopic bilateral tubal ligation with Filshie clips Exploratory laparotomy with repair of trocar injury to stomach Removal of Mirena IUD Anesthesia: MORENITAA Surgeon: Marivel Ellison Estimated Blood Loss (ml): 10 IV fluids (ml): 500 Urine output (ml): 10 Pathology: none sent Condition: stable Disposition: PACU Indications for Procedure: Patient request for permanent surgical sterility and removal of IUD Operative Findings: At the time of direct optical on insertion of the camera the stomach was noted to be moderately distended with small puncture consistent with varies needle. On exploratory laparotomy there was 1, possibly 2 areas in the lesser curvature of the stomach consistent with varies needle injury. No evidence of through and through injury, other vascular injury or abnormalities. She had normal-appear ing bilateral fallopian tubes and ovaries. No unusual intra-abdominal or pelvic anatomy or scarring appreciated. Description of Procedure: After the patient was met in the preoperative holding area and all questions were answered, she was taken to the operating room where anesthetic was administered per standard induction without incident. She was then positioned, prepped and draped in the dorsal lithotomy position. Bladder was drained for approximately 10 mL of clear urine. Speculum was placed in the vagina and the cervix was grasped anteriorly with a single-tooth tenaculum. [place] uterine manipulator was placed. Attention was then turned to the abdomen. On gloves were changed. A 5 mm infraumbilical skin incision was made. The abdomen was grasped and elevated. Veress needle was inserted without difficulty and saline drop test indicated intraperitoneal placement. Initial filling pressure however was 13. The varies needle was slightly drawn back and filling pressure remained elevated. A varies needle was removed. Abdomen was regrasped and elevated and varies needle was again easily inserted with "double pop sign" and the normal saline drip test. Again initial filling pressure was elevated at 14. Varies needle was removed. The optical trocar was then utilized to enter the abdomen under direct visualization. When the camera was introduced there was noted to be looking straight down area that I initially appeared to be bowel with a small hyperemic area consistent with possible varies needle puncture. Upon additional exploration this actually appeared to be the stomach immediately below the level of the umbilicus. General surgeon was consulted to the room, Dr. Parada. He agreed that this appeared to be varies needle injury. At this time an NG tube had been placed in the stomach decompressed. Dr. Parada did perform a mini laparotomy for exploration as well as repair of varies needle puncture site. Please see his operative report for details. The 5 mm trocar was incorporated into the repair of the fascia and was airtight. The abdomen was reinsufflated with CO2 gas and the patient was placed in steep Trendelenburg. A 5 mm suprapubic skin incision was made and there is less trocar was inserted under direct visualization. The bowel was swept out of the pelvis. The right and left fallopian tubes were positively identified. The Filshie clip bias cutter was introduced and the right fallopian tube was positively identified, carried out to the fimbriated ends and completely transected with the Filshie clip. Similarly the left fallopian tube was positively identified, carried out to the fimbriated ends and completely transected with the Filshie clip. The abdomen was then reinspected. No abnormal anatomy, scarring or other findings were noted. Trochars removed under direct visualization and the abdomen was desufflated of CO2 gas. The incisions were closed in a subcutaneous fashion with 4-0 Vicryl suture and dressing was applied. Attention was then turned on back to the vaginal portion of the procedure. Speculum was placed in the vagina. The [place] uterine manipulator was removed. The ring forcep was utilized to remove the Mirena IUD. Next All counts were reported to me as correct. The patient was awoken from anesthetic and returned to the recovery area in good condition. Case was reviewed with the attending anesthesiologist in light of the events of the case. The intubation was a "standard intubation" however was unremarkable from there perspective.
[2021-04-27] MEDS ORDERED: diphenhydrAMINE 50 MG/ML 1 ML VIAL IVP ONE (12:37)
[2021-04-27] MEDS ORDERED: ACETAMINOPHEN IV (For NPO) 1,000 MG in EMPTY BAG 1 BAG IVPB ONE (16:58)
[2021-04-27] MEDS ORDERED: ONDANSETRON 4 MG/2 ML VIAL IVP PRN (16:58)
[2021-04-27] MEDS ORDERED: diphenhydrAMINE 50 MG/ML 1 ML VIAL IVP PRN (16:58)
[2021-04-27] MEDS ORDERED: METOCLOPRAMIDE 5 MG/ML 2 ML VIAL IVP PRN (16:58)
--- NOTE | 2021-04-27 17:12 | P.PN ---
Progress Note - Text Progress Note Date: 04/27/21 Reviewed intraoperative findings and events with Maria Antonia in detail. She sustained an unanticipated trocar injury to distended stomach. This was repaired through a minilaparotomy by Dr. Mcrae without incident. She will keep her NG tube in until the morning. We'll remove at that time and start clear liquids. I discussed with her possibility of slow return of bowel function, ileus. Currently she reports her pain is well controlled but she is feeling thirsty. Abdomen is otherwise soft and nondistended. Dressings dry and intact.
[2021-04-27] MEDS ORDERED: HYDROmorphone 1 MG/ML 1 ML SYRINGE IVP PRN (17:14)
[2021-04-27] MEDS: KETOROLAC 30 MG/ML 1 ML VIAL IVP PRN (21:19)
[2021-04-28] MEDS: KETOROLAC 30 MG/ML 1 ML VIAL IVP PRN ×2 (02:58→08:45)
[2021-04-28 08:00] VITALS: TEMP 98.2
[2021-04-28] MEDS ORDERED: HYDROcodone/APAP 5-325MG 1 EACH TAB PO PRN (08:23)
[2021-04-28] MEDS ORDERED: IBUPROFEN 600 MG TAB PO PRN (08:24)
--- NOTE | 2021-04-28 08:32 | P.PN ---
Subjective Progress Note Date: 04/28/21 Principal diagnosis: Postop day 1 status post laparoscopic bilateral tubal ligation with varies needle injury to distended stomach, status post minilaparotomy with repair of injury. No gross complaining of feeling very thirsty and sore throat from the NG tube. Pain is tolerable. She denies nausea or vomiting. She is ambulating and voiding without difficulty. Objective - Vital Signs Vital signs: Vital Signs Temp 98.2 F 04/28/21 07:56 Pulse 72 04/28/21 07:56 Resp 16 04/28/21 07:56 BP 102/64 04/28/21 07:56 Pulse Ox 97 04/27/21 23:47 Intake & Output 04/27/21 04/28/21 04/28/21 18:59 06:59 18:59 Intake Total 1200 Output Total 20 200 Balance 1180 -200 Weight 62.3 kg Intake: IV 1200 Output: Urine 10 200 Estimated Blood Loss 10 Other: # Voids 1 - Constitutional General appearance: Present: average body habitus - Respiratory Respiratory: bilateral: CTA - Cardiovascular Rhythm: regular - Gastrointestinal General gastrointestinal: Present: decreased bowel sounds, tenderness. Absent: distended Localized gastrointestinal: tender: diffuse (Incision with dressing intact, tender to palpation.) Assessment and Plan (1) Family planning Current Visit: Yes Status: Acute Code(s): Z30.09 - ENCOUNTER FOR OTH GENERAL CNSL AND ADVICE ON CONTRACEPTION SNOMED Code(s): 798299842 (2) S/P exploratory laparotomy Current Visit: Yes Status: Acute Code(s): Z98.890 - OTHER SPECIFIED POSTPROCEDURAL STATES SNOMED Code(s): 450271221 Plan: 40-year-old postop day 1 status post laparoscopic bilateral tubal ligation with varies needle injury to distended stomach. Status post mini laparotomy with repair of varies needle injury. Minimal output from the NG tube throughout the night. Plan is to remove the NG tube this morning and advanced to clear liquid diet. Encourage ambulation and transition as tolerated to oral pain medications. Possible discharge home late in the day pending adequate pain control and advancing diet.
[2021-04-28 08:49] LABS: Basophils % (A) 0 %; Eosinophils % (A) 0 %; HCT 39.1 % (34.0-46.0); HGB 13.3 gm/dL (11.4-16.0); Lymphocytes # (A) 1.9 k/uL (1.0-4.8); Lymphocytes % (A) 19 %; MCH 35.2 pg (25.0-35.0); MCHC 34.1 g/dL (31.0-37.0); MCV 103.2 fL (80.0-100.0); Mean Platelet Volume 8.2; Monocytes # (A) 0.6 k/uL (0-1.0); Monocytes % (A) 6 %; Neutrophils # (A) 7.4 k/uL (1.3-7.7); Neutrophils % (A) 74 %; Platelet Count 180 k/uL (150-450); RBC 3.79 m/uL (3.80-5.40); RDW 11.2 % (11.5-15.5)
[2021-04-28] MEDS: SIMETHICONE 80 MG CHEWABLE PO SCH ×2 (09:13→14:57)
--- NOTE | 2021-04-28 15:51 | P.PN ---
Subjective Progress Note Date: 04/28/21 CHIEF COMPLAINT: Gastric injury HISTORY OF PRESENT ILLNESS: Patient status post Exploratory laparotomy with gastrorrhaphy for gastric injury. Patient had tubal ligation with [employer]OR service. Patient does reports abdominal pain. Pain is controlled. Denies any nausea or vomiting. She is tolerating clear liquids. Afebrile WBC 10.0 hemoglobin 13.3 Patient seen and examined with Dr. allen PHYSICAL EXAM: VITAL SIGNS: Reviewed. GENERAL: Well-developed in no acute distress. HEENT: No sclera icterus. Extraocular movements grossly intact. Moist buccal mucosa. Head is atraumatic, normocephalic. ABDOMEN: Soft. Abdominal incisional dressing saturated NEUROLOGIC: Alert and oriented. Cranial nerves II through XII grossly intact. ASSESSMENT: 1. Gastric injury status post Exploratory laparotomy with gastrorrhaphy PLAN: -Continue supportive care -Incisional dressing changed -Encourage patient to ambulate -Encourage patient to use incentive spirometer Physician Computer Systems Engineer note has been reviewed by physician. Signing provider agrees with the documented findings, assessment, and plan of care. Objective - Vital Signs Vital signs: Vital Signs Temp 98.2 F 04/28/21 07:56 Pulse 72 04/28/21 07:56 Resp 16 04/28/21 07:56 BP 102/64 04/28/21 07:56 Pulse Ox 97 04/27/21 23:47 Intake & Output 04/27/21 04/28/21 04/28/21 18:59 06:59 18:59 Intake Total 1200 Output Total 20 200 Balance 1180 -200 Weight 62.3 kg Intake: IV 1200 Output: Urine 10 200 Estimated Blood Loss 10 Other: # Voids 1 - Labs CBC & Chem 7: 04/28/21 08:23 Labs: Abnormal Lab Results - Last 24 Hours (Table) 04/28/21 Range/Units 08:23 RBC 3.79 L (3.80-5.40) m/uL MCV 103.2 H (80.0-100.0) fL MCH 35.2 H (25.0-35.0) pg RDW 11.2 L (11.5-15.5) %
--- NOTE | 2021-04-28 17:50 | P.PN ---
Subjective Progress Note Date: 04/28/21 Principal diagnosis: Postop day 1 status post laparoscopic bilateral tubal ligation with varies needle injury to distended stomach, status post minilaparotomy with repair of injury. Feeling significantly better with the NG tube removed and being able to eat. Her pain is well-controlled with oral pain medications. She tolerated advancement of her diet throughout the day and did have a regular dinner. She denies nausea or vomiting. She is having normal flatus. She is ambulating and voiding otherwise without difficulty. She has not yet had a bowel movement. Objective - Vital Signs Vital signs: Vital Signs Temp 98.2 F 04/28/21 07:56 Pulse 72 04/28/21 07:56 Resp 16 04/28/21 07:56 BP 102/64 04/28/21 07:56 Pulse Ox 97 04/27/21 23:47 Intake & Output 04/27/21 04/28/21 04/28/21 18:59 06:59 18:59 Intake Total 1200 Output Total 20 200 Balance 1180 -200 Weight 62.3 kg Intake: IV 1200 Output: Urine 10 200 Estimated Blood Loss 10 Other: # Voids 1 - Exam Comfortable appearing in no acute distress. The abdomen is soft, nontender and nondistended. She has normal active bowel sounds in all 4 quadrants. Dressing intact. - Labs CBC & Chem 7: 04/28/21 08:23 Labs: Abnormal Lab Results - Last 24 Hours (Table) 04/28/21 Range/Units 08:23 RBC 3.79 L (3.80-5.40) m/uL MCV 103.2 H (80.0-100.0) fL MCH 35.2 H (25.0-35.0) pg RDW 11.2 L (11.5-15.5) % Assessment and Plan (1) Family planning Current Visit: Yes Status: Acute Code(s): Z30.09 - ENCOUNTER FOR OTH GENERAL CNSL AND ADVICE ON CONTRACEPTION SNOMED Code(s): 726216535 (2) S/P exploratory laparotomy Current Visit: Yes Status: Acute Code(s): Z98.890 - OTHER SPECIFIED POSTPROCEDURAL STATES SNOMED Code(s): 486091318 Plan: 40-year-old postop day 1 status post laparoscopic bilateral tubal ligation with varies needle injury to distended stomach. Status post mini laparotomy with repair of varies needle injury. Minimal output from the NG tube throughout the night. Plan is to remove the NG tube this morning and advanced to clear liquid diet. Encourage ambulation and transition as tolerated to oral pain medications. Possible discharge home late in the day pending adequate pain control and advancing diet. Patient strongly desires discharge home to her family. She has tolerated advancement of her diet and is passing flatus. Her exam is benign. I believe she is stable for discharge home. She is given specific instructions regarding activity, diet and signs of developing ileus.
--- NOTE | 2021-04-28 18:01 | P.DS ---
Providers Date of admission: 04/28/21 07:52 Expected date of discharge: 04/28/21 Attending physician: Marivel Ellison Consults: 04/27/21 11:00 Consult Physician Routine Consulting Provider: Abhi Degroot Consult Reason/Comments: Gastric injury Do you want consulting provider notified?: Already Contacted Primary care physician: Stated None - Discharge Diagnosis(es) (1) Family planning Current Visit: Yes Status: Acute (2) S/P exploratory laparotomy Current Visit: Yes Status: Acute Hospital Course: This is a 40-year-old 2 para 2 woman who is admitted for planned laparoscopic bilateral tubal ligation and removal of Filshie clips. With introduction of the varies needle there was elevated filling pressure noted. No insufflation was undertaken and the varies needle was removed. Second attempt revealed the same findings therefore Direct entry with optical trocar then showed distended stomach down to the level of the umbilicus. There is evidence of varies needle injury. Intraoperative consultation with Dr. Mcrae from general surgery was undertaken. He recommended and performed mini laparotomy. The stomach had been decompressed with an NG tube at that time. The stomach was inspected and 2 punctures consistent with varies needle were oversewn. There is no evidence of through and through injury, hematoma or other abnormalities. She had normal pelvic and abdominal anatomy. The tubal ligation was then completed as planned with otherwise normal pelvic anatomy. Please see the operative report for details. Review of the case with the team was remarkable only for the patient receiving a standard induction of anesthetic with positive pressure airway of ventilation prior to placement of the ET tube. This possible source of her distended and displaced stomach. Of note there was no difficulty with the induction of anesthetic or intubation otherwise. Her NG tube remained in place and she was admitted for observation. By the morning of postoperative day #1 she had minimal output from her NG tube and denied nausea or vomiting. Her pain was appropriate for postoperative status and was managed initially with IV pain medications followed by transition to oral pain medications as her diet was advanced. Throughout the day she tolerated clear and then liquid diet. She had normal resumption of bowel sounds in all 4 quadrants and her abdominal exam was benign. She was passing flatus. Her vital signs were stable. By the evening she was tolerating a general diet and strongly desired discharge home. It is my opinion that she is stable for discharge home with close follow-up in the outpatient setting. Patient Condition at Discharge: Good Plan - Discharge Summary Discharge Rx Participant: No New Discharge Prescriptions: New HYDROcodone/APAP 5-325MG [[place] 5-325] 2 each PO Q4HR PRN #20 tab PRN Reason: Pain Ibuprofen [Motrin] 600 mg PO QID PRN tab PRN Reason: Pain Simethicone Chew [Mylicon Chew] 80 mg PO QID tab Discharge Medication List HYDROcodone/APAP 5-325MG [Kennard 5-325] 2 each PO Q4HR PRN #20 tab 04/28/21 [Rx] Ibuprofen [Motrin] 600 mg PO QID PRN tab 04/28/21 [Rx] Simethicone Chew [Mylicon Chew] 80 mg PO QID tab 04/28/21 [Rx] Patient Instructions/Handouts: *Surgery [facility] - Scopalamine Patch Instructions
[2021-04-28 18:47] VITALS: BP 101/62; PULSE 68
== END 2021-04-28 18:50 | disposition home or self-care (01) | DRG 744 ==
LOC: OR 08:34 → 4FBP 11:12 → OR 11:12 → 4FBP 04-28 06:02 → OBSVTOIN 04-28 07:52
PROVIDERS: ADMIT Obstetrics & Gynecology; ATTEND Obstetrics & Gynecology
PROC: 0UL74CZ Occlusion of Bilateral Fallopian Tubes with Extraluminal Device, Percutaneous Endoscopic Approach (ICD-10-PCS; principal; 2021-04-27 09:45)
PROC: 0UPD7HZ Removal of Contraceptive Device from Uterus and Cervix, Via Natural or Artificial Opening (ICD-10-PCS; principal; 2021-04-27 09:45)
PROC: 0DQ60ZZ Repair Stomach, Open Approach (ICD-10-PCS; 2021-04-27 09:45)
PROC: 0DJ64ZZ Inspection of Stomach, Percutaneous Endoscopic Approach (ICD-10-PCS; 2021-04-27 09:45)
DX: Z30.2 Encounter for sterilization (principal); K91.72 Accidental puncture and laceration of a digestive system organ or structure during other procedure; F17.210 Nicotine dependence, cigarettes, uncomplicated; G43.909 Migraine, unspecified, not intractable, without status migrainosus; Z53.31 Laparoscopic surgical procedure converted to open procedure; Y65.8 Other specified misadventures during surgical and medical care
CPT/HCPCS: 81025; 85025

== ENCOUNTER 2023-02-27 15:45 | Emergency (ER) | payer OTHER ==
[2023-02-27 16:12] VITALS: RESP 16
[2023-02-27] MEDS ORDERED: ONDANSETRON 4 MG/2 ML VIAL IVP STA (16:14)
[2023-02-27] MEDS ORDERED: SODIUM CHLORIDE 0.9% 1,000 ML IV STA (16:14)
[2023-02-27] MEDS ORDERED: HYDROmorphone 1 MG/ML 1 ML SYRINGE IVP STA (16:15)
[2023-02-27 16:44] LABS: Basophils % (A) 1 %; Eosinophils # (A) 0.2 k/uL (0-0.7); Eosinophils % (A) 3 %; HCT 45.7 % (34.0-46.0); HGB 15.1 gm/dL (11.4-16.0); Lymphocytes # (A) 1.8 k/uL (1.0-4.8); Lymphocytes % (A) 28 %; MCH 33.7 pg (25.0-35.0); MCHC 33.1 g/dL (31.0-37.0); MCV 101.8 fL (80.0-100.0); Mean Platelet Volume 7.5; Monocytes # (A) 0.3 k/uL (0-1.0); Monocytes % (A) 5 %; Neutrophils # (A) 4.1 k/uL (1.3-7.7); Neutrophils % (A) 63 %; Platelet Count 237 k/uL (150-450); RBC 4.49 m/uL (3.80-5.40); RDW 11.5 % (11.5-15.5); WBC 6.5 k/uL (3.8-10.6)
[2023-02-27 16:58] LABS: ALT 16 U/L (4-34); AST 24 U/L (14-36); African American GFR (CKD) >90 (>60 ml/min/1.73 sqM); Albumin 4.7 g/dL (3.5-5.0); Alkaline Phosphatase 53 U/L (38-126); Amylase 71 U/L (30-110); Anion Gap 15 mmol/L; Blood Urea Nitrogen 13 mg/dL (7-17); Calcium 9.3 mg/dL (8.4-10.2); Carbon Dioxide 23 mmol/L (22-30); Chloride 105 mmol/L (98-107); Glucose 98 mg/dL (74-99); Lipase 143 U/L (23-300); Non-African American GFR(CKD) >90 (>60 ml/min/1.73 sqM); Potassium 3.8 mmol/L (3.5-5.1); Sodium 143 mmol/L (137-145); Total Bilirubin 0.4 mg/dL (0.2-1.3); Total Protein 7.9 g/dL (6.3-8.2)
[2023-02-27 17:04] LABS: Prothrombin Time 11.2 sec (10.0-12.5)
--- NOTE | 2023-02-27 17:05 | ED ---
Abdominal Pain HPI - General Chief Complaint: Abdominal Pain Stated Complaint: Abd Pain Time Seen by Provider: 02/27/23 16:10 Source: patient Mode of arrival: ambulatory Limitations: no limitations - History of Present Illness Initial Comments: 42-year-old female presenting with chief complaint of abdominal pain. Pain started around noon today and has progressively worsened. Located around the umbilicus and towards the right side of the abdomen. The right lower quadrant feels somewhat firm. She admits to nausea with no vomiting. No diarrhea, hematochezia, melena. No fevers. No chest pain or difficulty breathing. Patient has history of bowel resection due to bowel perforation during her tubal ligation. - Related Data Home Medications Medication Instructions Recorded Confirmed SUMAtriptan succinate [Imitrex] 50 mg PO BID PRN MDD 100MG 02/27/23 02/27/23 Previous Rx's Medication Instructions Recorded HYDROcodone/APAP 7.5-325MG [[place] 1 tab PO Q6HR PRN 3 Days #12 tab 02/27/23 7.5-325] Ondansetron Odt [Zofran Odt] 4 mg PO Q8HR PRN #20 tab 02/27/23 Allergies Allergy/AdvReac Type Severity Reaction Status Date / Time No Known Allergies Allergy Verified 02/27/23 19:34 Review of Systems ROS Statement: Those systems with pertinent positive or pertinent negative responses have been documented in the HPI. ROS Other: All systems not noted in ROS Statement are negative. Past Medical History Past Medical History: No Reported History Additional Past Medical History / Comment(s): MIGRAINE HEADACHE, History of Any Multi-Drug Resistant Organisms: None Reported Past Surgical History: Bowel Resection, Section, Tubal Ligation Additional Past Surgical History / Comment(s): Abdominal Laproscopy Past Anesthesia/Blood Transfusion Reactions: Motion Sickness Past Psychological History: No Psychological Hx Reported Smoking Status: Current every day smoker Past Alcohol Use History: Occasional Past Drug Use History: None Reported - Past Family History Father Family Medical History: No Reported History General Exam Limitations: no limitations General appearance: alert, in no apparent distress Head exam: Present: atraumatic, normocephalic Eye exam: Present: normal appearance Neck exam: Present: normal inspection Respiratory exam: Present: normal lung sounds bilaterally. Absent: respiratory distress, wheezes, rales, rhonchi, stridor Cardiovascular Exam: Present: regular rate, normal rhythm, normal heart sounds. Absent: systolic murmur, diastolic murmur, rubs, gallop, clicks GI/Abdominal exam: Present: soft, distended, tenderness, guarding. Absent: rebound, rigid Neurological exam: Present: alert, oriented X3 Psychiatric exam: Present: normal affect, normal mood Skin exam: Present: warm, dry Course Vital Signs 02/27/23 02/27/23 16:05 20:03 Temperature 98.2 F 98.0 F Pulse Rate 81 77 Respiratory 16 16 Rate Blood Pressure 116/75 100/53 O2 Sat by Pulse 98 98 Oximetry Medical Decision Making - Medical Decision Making Was pt. sent in by a medical professional or institution (, PA, FIREMAN, urgent care, hospital, or custodial...) When possible be specific @ -No Did you speak to anyone other than the patient for history (EMS, parent, family, police, friend...)? What history was obtained from this source @ -No Did you review nursing and triage notes (agree or disagree)? Why? @ -I reviewed and agree with nursing and triage notes Were old charts reviewed (outside hosp., previous admission, EMS record, old EKG, old radiological studies, urgent care reports/EKG's, custodial records)? Report findings @ -No old charts were reviewed Differential Diagnosis (chest pain, altered mental status, abdominal pain women, abdominal pain men, vaginal bleeding, weakness, fever, dyspnea, syncope, headache, dizziness, GI bleed, back pain, seizure, CVA, palpatations, mental health, musculoskeletal)? @ -MDM Differential Abdominal Pain Women: Appendicitis, Cholecystitis, diverticulosis, ischemic bowel, pancreatitis, hepatitis, UTI, gastroenteritis, AAA, incarcerated hernia, bowel obstruction, constipation, inflammatory bowel, hepatitis, peptic ulcer disease, splenic infarction, perforated viscus, vulvitis, ovarian torsion, PID, kidney stone, placenta abruption... This is not meant to be an all-inclusive list EKG interpreted by me (3pts min.). @ -As above X-rays interpreted by me (1pt min.). @ -None done CT interpreted by me (1pt min.). @ -CT shows no evidence for acute right upper quadrant process. The gallbladder is within normal limits. No evidence for obstructive uropathy. The appendix is normal. Findings suggestive of pelvic congestion syndrome with multiple torturous vessels in the pelvis predominantly in the left U/S interpreted by me (1pt. min.). @ -None done What testing was considered but not performed or refused? (CT, X-rays, U/S, labs)? Why? @ -None What meds were considered but not given or refused? Why? @ -None Did you discuss the management of the patient with other professionals (professionals i.e. DrFamilia, PA, FIREMAN, lab, RT, psych nurse, social services director, medical chief technician, teacher, peace officer, pillowcase cutter)? Give summary @ -No Was smoking cessation discussed for >3mins.? @ -No Was critical care preformed (if so, how long)? @ -No Were there social determinants of health that impacted care today? How? (Homelessness, low income, unemployed, alcoholism, drug addiction, transportation, low edu. Level, literacy, decrease access to med. care, care home, rehab)? @ -No Was there de-escalation of care discussed even if they declined (Discuss DNR or withdrawal of care, Hospice)? DNR status @ -No What co-morbidities impacted this encounter? (DM, HTN, Smoking, COPD, CAD, Cancer, CVA, ARF, Chemo, Hep., AIDS, mental health diagnosis, sleep apnea, morbid obesity)? @ -None Was patient admitted / discharged? Hospital course, mention meds given and route, prescriptions, significant lab abnormalities, going to OR and other pertinent info. @ -42-year-old female presenting with chief complaint of abdominal pain and nausea. Located predominantly on the right side mainly in the right lower quadrant. On physical exam there is tenderness. Lab work and urine are grossly unremarkable. CT shows no signs of appendicitis, obstructive uropathy, or cholecystitis/cholelithiasis. There are multiple dilated and tortuous veins suggesting pelvic congestion syndrome. Patient is educated on today's findings. She will be sent pain medication and Zofran to her pharmacy. Instructed to follow-up with her [facility]. Follow-up with PCP. Report back to ER with any new or worsening symptoms. Discussed return parameters and answered all questions. Patient conveyed verbal understanding and agreed to the plan. I discussed this case in detail with my attending Dr. Chavez Undiagnosed new problem with uncertain prognosis? @ -No Drug Therapy requiring intensive monitoring for toxicity (Heparin, Nitro, Insulin, Cardizem)? @ -No Were any procedures done? @ -No Diagnosis/symptom? @ -Pelvic congestion syndrome Acute, or Chronic, or Acute on Chronic? @ -acute Uncomplicated (without systemic symptoms) or Complicated (systemic symptoms)? @ -Uncomplicated Side effects of treatment? @ -No Exacerbation, Progression, or Severe Exacerbation? @ -No Poses a threat to life or bodily function? How? (Chest pain, [place], NH, pneumonia, PE, COPD, DKA, ARF, appy, cholecystitis, CVA, Diverticulitis, Homicidal, Suicidal, threat to staff... and all critical care pts) @ -Low likelihood - Lab Data Result diagrams: 02/27/23 16:35 02/27/23 16:35 Lab Results 02/27/23 02/27/23 02/27/23 Range/Units 16:35 16:35 16:35 WBC 6.5 (3.8-10.6) k/uL RBC 4.49 (3.80-5.40) m/uL Hgb 15.1 (11.4-16.0) gm/dL Hct 45.7 (34.0-46.0) % MCV 101.8 H (80.0-100.0) fL MCH 33.7 (25.0-35.0) pg MCHC 33.1 (31.0-37.0) g/dL RDW 11.5 (11.5-15.5) % Plt Count 237 (150-450) k/uL MPV 7.5 Neutrophils % 63 % Lymphocytes % 28 % Monocytes % 5 % Eosinophils % 3 % Basophils % 1 % Neutrophils # 4.1 (1.3-7.7) k/uL Lymphocytes # 1.8 (1.0-4.8) k/uL Monocytes # 0.3 (0-1.0) k/uL Eosinophils # 0.2 (0-0.7) k/uL Basophils # 0.0 (0-0.2) k/uL PT 11.2 (10.0-12.5) sec INR 1.0 (<1.2) APTT 25.0 (22.0-30.0) sec Sodium 143 (137-145) mmol/L Potassium 3.8 (3.5-5.1) mmol/L Chloride 105 (98-107) mmol/L Carbon Dioxide 23 (22-30) mmol/L Anion Gap 15 mmol/L BUN 13 (7-17) mg/dL Creatinine 0.61 (0.52-1.04) mg/dL Est GFR (CKD-EPI)AfAm >90 (>60 ml/min/1.73 sqM) Est GFR (CKD-EPI)NonAf >90 (>60 ml/min/1.73 sqM) Glucose 98 (74-99) mg/dL Plasma Lactic Acid Juve (0.7-2.0) mmol/L Calcium 9.3 (8.4-10.2) mg/dL Total Bilirubin 0.4 (0.2-1.3) mg/dL AST 24 (14-36) U/L ALT 16 (4-34) U/L Alkaline Phosphatase 53 (38-126) U/L Total Protein 7.9 (6.3-8.2) g/dL Albumin 4.7 (3.5-5.0) g/dL Amylase 71 (30-110) U/L Lipase 143 (23-300) U/L Urine Color Urine Appearance (Clear) Urine pH (5.0-8.0) Ur Specific [place] (1.001-1.035) Urine Protein (Negative) Urine Glucose (UA) (Negative) Urine Ketones (Negative) Urine Blood (Negative) Urine Nitrite (Negative) Urine Bilirubin (Negative) Urine Urobilinogen (<2.0) mg/dL Ur Leukocyte Esterase (Negative) 02/27/23 02/27/23 Range/Units 16:35 17:44 WBC (3.8-10.6) k/uL RBC (3.80-5.40) m/uL Hgb (11.4-16.0) gm/dL Hct (34.0-46.0) % MCV (80.0-100.0) fL MCH (25.0-35.0) pg MCHC (31.0-37.0) g/dL RDW (11.5-15.5) % Plt Count (150-450) k/uL MPV Neutrophils % % Lymphocytes % % Monocytes % % Eosinophils % % Basophils % % Neutrophils # (1.3-7.7) k/uL Lymphocytes # (1.0-4.8) k/uL Monocytes # (0-1.0) k/uL Eosinophils # (0-0.7) k/uL Basophils # (0-0.2) k/uL PT (10.0-12.5) sec INR (<1.2) APTT (22.0-30.0) sec Sodium (137-145) mmol/L Potassium (3.5-5.1) mmol/L Chloride (98-107) mmol/L Carbon Dioxide (22-30) mmol/L Anion Gap mmol/L BUN (7-17) mg/dL Creatinine (0.52-1.04) mg/dL Est GFR (CKD-EPI)AfAm (>60 ml/min/1.73 sqM) Est GFR (CKD-EPI)NonAf (>60 ml/min/1.73 sqM) Glucose (74-99) mg/dL Plasma Lactic Acid Juve 1.6 (0.7-2.0) mmol/L Calcium (8.4-10.2) mg/dL Total Bilirubin (0.2-1.3) mg/dL AST (14-36) U/L ALT (4-34) U/L Alkaline Phosphatase (38-126) U/L Total Protein (6.3-8.2) g/dL Albumin (3.5-5.0) g/dL Amylase (30-110) U/L Lipase (23-300) U/L Urine Color Light Yellow Urine Appearance Clear (Clear) Urine pH 5.5 (5.0-8.0) Ur Specific [place] 1.022 (1.001-1.035) Urine Protein Negative (Negative) Urine Glucose (UA) Negative (Negative) Urine Ketones Negative (Negative) Urine Blood Negative (Negative) Urine Nitrite Negative (Negative) Urine Bilirubin Negative (Negative) Urine Urobilinogen <2.0 (<2.0) mg/dL Ur Leukocyte Esterase Negative (Negative) Disposition Clinical Impression: Pelvic congestion syndrome Disposition: HOME SELF-CARE Condition: Fair Instructions (If sedation given, give patient instructions): Abdominal Pain (ED) Additional Instructions: Follow up with [facility] and PCP. Report back to ER with any new or worsening symptoms. Prescriptions: HYDROcodone/APAP 7.5-325MG [[place] 7.5-325] 1 tab PO Q6HR PRN 3 Days #12 tab PRN Reason: Pain Ondansetron Odt [Zofran Odt] 4 mg PO Q8HR PRN #20 tab PRN Reason: Nausea Is patient prescribed a controlled substance at d/c from ED?: No Referrals: Giorgio Mckeon MD [Primary Care Provider] - 1-2 days Marivel Ellison MD [STAFF PHYSICIAN] - 1-2 days Time of Disposition: 19:41
[2023-02-27 18:05] LABS: Appearance,Urine Clear (Clear); Bilirubin,Urine Negative (Negative); Blood,Urine Negative (Negative); Color,Urine Light Yellow; Glucose,Urine (UA) Negative (Negative); Ketones,Urine Negative (Negative); Leukocyte Esterase,Urine Negative (Negative); Nitrite,Urine Negative (Negative); PH, Urine 5.5 (5.0-8.0); Protein,Urine Negative (Negative); Specific Gravity,Urine 1.022 (1.001-1.035); Urobilinogen,Urine <2.0 mg/dL (<2.0)
--- NOTE | 2023-02-27 19:14 | CT ---
EXAMINATION TYPE: CT abdomen pelvis w con CT DLP: 566.6 mGycm, Automated exposure control for dose reduction was used. DATE OF EXAM: 02/27/2023 6:34 PM COMPARISON: CT abdomen pelvis most recent from CLINICAL INDICATION:Female, 42 years old with history of abdominal pain; RUQ pain, x1 day TECHNIQUE: Axial CT abdomen pelvis w con;Sagittal and coronal reformats were created on a separate w orkstation. Contrast used:100 mL of Isovue 300 with IV Contrast, (none if empty) Oral contrast used: without Oral Contrast (none if empty) FINDINGS: LOWER CHEST: Unremarkable ABDOMEN LIVER: Unremarkable GALLBLADDER AND BILE DUCTS: Unremarkable. PANCREAS: Unremarkable. SPLEEN: Unremarkable. ADRENAL GLANDS: Unremarkable. KIDNEYS AND URETERS: No evidence of hydronephrosis or renal calculus. The ureters are unremarkable. PELVIS BLADDER: Unremarkable REPRODUCTIVE: Bilateral tubal ligation clips. ABDOMEN & PELVIS STOMACH AND BOWEL: No evidence of bowel obstruction. The appendix is normal. PERITONEUM/RETROPERITONEUM: No evidence of pneumoperitoneum or free fluid. VASCULATURE: No evidence of aortic aneurysm. Multiple dilated tortuous vessels in the left pelvis. MUSCULOSKELETAL: No acute osseous abnormalities LYMPH NODES: No gross evidence for lymphadenopathy. SOFT TISSUE/ABDOMINAL WALL: Fat-containing umbilical hernia. IMPRESSION: 1. No evidence for acute right upper quadrant process. The gallbladder is within normal limits. No e vidence for obstructive uropathy. The appendix is normal. 2. Findings suggestive of pelvic congestion syndrome with multiple tortuous vessels in the pelvis pr edominantly in the left.
[2023-02-27] MEDS ORDERED: ONDANSETRON 4 MG ODT STARTER PACK 2 TAB BTL PO STA (19:36)
[2023-02-27] MEDS ORDERED: ACET/COD 300 MG/30 MG STARTER PACK 6 TAB BTL PO STA (19:36)
[2023-02-27 20:11] VITALS: BP 100/53; PULSE 77; TEMP 98
== END 2023-02-27 20:05 | disposition home or self-care (01) ==
LOC: EC 15:45
DX: N94.89 Other specified conditions associated with female genital organs and menstrual cycle (principal); F17.200 Nicotine dependence, unspecified, uncomplicated
CPT/HCPCS: 36415; 80053; 82150; 83605; 83690; 85025; 85610; 85730; 81003; 74177; 96374; 96375; 96361; 99284; J2405; J1170; S0119; Q9967

== ENCOUNTER 2023-03-07 14:34 | Emergency (ER) | payer OTHER ==
--- NOTE | 2023-03-07 15:27 | ED ---
General Adult HPI - General Chief complaint: Abdominal Pain Stated complaint: abd pain Source: patient, RN notes reviewed Mode of arrival: ambulatory Limitations: no limitations - History of Present Illness Initial comments: 42 year old female presents to the emergency department for evaluation of right lower abdominal pain. Patient states that it started on 02/27/23 but has not had any improvement. She admits to nausea worse with eating. Denies vomiting, diarrhea, fever. She had a computed tomography scan done at that time and was told that she had pelvic congestion syndrome. 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 She was told to come to the emergency department for further evaluation. - Related Data Home Medications Medication Instructions Recorded Confirmed SUMAtriptan succinate [Imitrex] 50 mg PO BID PRN MDD 100MG 02/27/23 02/27/23 Previous Rx's Medication Instructions Recorded HYDROcodone/APAP 7.5-325MG [Sedan 1 tab PO Q6HR PRN 3 Days #12 tab 02/27/23 7.5-325] Ondansetron Odt [Zofran Odt] 4 mg PO Q8HR PRN #20 tab 02/27/23 Allergies Allergy/AdvReac Type Severity Reaction Status Date / Time No Known Allergies Allergy Verified 03/07/23 15:16 Review of Systems ROS Statement: Those systems with pertinent positive or pertinent negative responses have been documented in the HPI. ROS Other: All systems not noted in ROS Statement are negative. Past Medical History Past Medical History: No Reported History Additional Past Medical History / Comment(s): MIGRAINE HEADACHE, History of Any Multi-Drug Resistant Organisms: None Reported Past Surgical History: Bowel Resection, Section, Tubal Ligation Additional Past Surgical History / Comment(s): Abdominal Laproscopy Past Anesthesia/Blood Transfusion Reactions: Motion Sickness Past Psychological History: No Psychological Hx Reported Smoking Status: Current every day smoker Past Alcohol Use History: Occasional Past Drug Use History: None Reported - Past Family History Father Family Medical History: No Reported History General Exam - General Exam Comments Initial Comments: Visual Physical Exam Vital signs reviewed General: Well-appearing, nontoxic, no acute distress. Head: Normocephalic, atraumatic Eyes: PERRLA, EOMI ENT: Airway patent Chest: Nonlabored breathing Skin: No visual rash, normal skin tone Neuro: Alert and oriented 3 Musculoskeletal: No gross abnormalities Limitations: no limitations General appearance: alert, in no apparent distress Head exam: Present: atraumatic, normocephalic, normal inspection Eye exam: Present: normal appearance, PERRL, EOMI. Absent: scleral icterus, conjunctival injection, periorbital swelling ENT exam: Present: normal exam, mucous membranes moist Neck exam: Present: normal inspection. Absent: tenderness, meningismus, lymphadenopathy Respiratory exam: Present: normal lung sounds bilaterally. Absent: respiratory distress, wheezes, rales, rhonchi, stridor Cardiovascular Exam: Present: regular rate, normal rhythm, normal heart sounds. Absent: systolic murmur, diastolic murmur, rubs, gallop, clicks GI/Abdominal exam: Present: soft, tenderness (lower), normal bowel sounds. Absent: distended, guarding, rebound, rigid Extremities exam: Present: normal inspection, full ROM, normal capillary refill. Absent: tenderness, pedal edema, joint swelling, calf tenderness Back exam: Present: normal inspection Neurological exam: Present: alert, oriented X3 Psychiatric exam: Present: normal affect, normal mood Skin exam: Present: warm, dry, intact, normal color. Absent: rash Course Vital Signs 03/07/23 03/07/23 03/07/23 15:13 17:28 19:08 Temperature 98 F 98.2 F Pulse Rate 82 60 60 Respiratory 16 16 18 Rate Blood Pressure 105/55 99/65 111/73 O2 Sat by Pulse 98 100 100 Oximetry Medical Decision Making - Medical Decision Making Was pt. sent in by a medical professional or institution (, PA, OPERATIONAL ASSISTANT, urgent care, hospital, or care home...) When possible be specific @ -Pelvic ultrasound that was obtained today was reviewed Did you speak to anyone other than the patient for history (EMS, parent, family, police, friend...)? What history was obtained from this source @ -No Did you review nursing and triage notes (agree or disagree)? Why? @ -I reviewed and agree with nursing and triage notes Were old charts reviewed (outside hosp., previous admission, EMS record, old EKG , old radiological studies, urgent care reports/EKG's, care home records)? Report findings @ -No old charts were reviewed Differential Diagnosis (chest pain, altered mental status, abdominal pain women, abdominal pain men, vaginal bleeding, weakness, fever, dyspnea, syncope, headache, dizziness, GI bleed, back pain, seizure, CVA, palpatations, mental health, musculoskeletal)? @ -Differential Abdominal Pain Women: Appendicitis, Cholecystitis, diverticulosis, ischemic bowel, pancreatitis, hepatitis, UTI, gastroenteritis, AAA, incarcerated hernia, bowel obstruction, constipation, inflammatory bowel, hepatitis, peptic ulcer disease, splenic infarction, perforated viscus, vulvitis, ovarian torsion, PID, kidney stone, placenta abruption, this is not meant to be an all-inclusive list EKG interpreted by me (3pts min.). @ -None X-rays interpreted by me (1pt min.). @ -None done CT interpreted by me (1pt min.). @ -CT abdomen and pelvis shows no acute lower abdominal process U/S interpreted by me (1pt. min.). @ -None done What testing was considered but not performed or refused? (CT, X-rays, U/S, labs)? Why? @ -None What meds were considered but not given or refused? Why? @ -None Did you discuss the management of the patient with other professionals (professionals i.e. , PA, OPERATIONAL ASSISTANT, lab, RT, psych nurse, social worker school, recoil spring winder, teacher, intelligence officer basic, director of casework department)? Give summary @ -No Was smoking cessation discussed for >3mins.? @ -No Was critical care preformed (if so, how long)? @ -No Were there social determinants of health that impacted care today? How? (Homel essness, low income, unemployed, alcoholism, drug addiction, transportation, low edu. Level, literacy, decrease access to med. care, [facility], rehab)? @ -No Was there de-escalation of care discussed even if they declined (Discuss DNR or withdrawal of care, Hospice)? DNR status @ -No What co-morbidities impacted this encounter? (DM, HTN, Smoking, COPD, CAD, Cancer, CVA, ARF, Chemo, Hep., AIDS, mental health diagnosis, sleep apnea, morbid obesity)? @ -None Was patient admitted / discharged? Hospital course, mention meds given and route, prescriptions, significant lab abnormalities, going to OR and other pertinent info. @ -Discharge. She presented to the emergency department for evaluation of right-sided lower abdominal pain 2 weeks. Laboratory studies obtained which were essentially unremarkable. CT abdomen and pelvis obtained which shows no acute lower abdominal process. Patient also had a pelvic ultrasound done today on outpatient which was unremarkable. Patient was given a dose of morphine and IV fluids. Patient advised on findings of imaging and laboratory studies. Advised outpatient follow-up with her PCP. Patient is ambulatory. Patient st able at time of discharge. Case discussed with Dr. King. Undiagnosed new problem with uncertain prognosis? @ -No Drug Therapy requiring intensive monitoring for toxicity (Heparin, Nitro, Insulin, Cardizem)? @ -No Were any procedures done? @ -No Diagnosis/symptom? @ -abdominal pain Acute, or Chronic, or Acute on Chronic? @ -Acute Uncomplicated (without systemic symptoms) or Complicated (systemic symptoms)? @ -uncompolicated Side effects of treatment? @ -No Exacerbation, Progression, or Severe Exacerbation? @ -No Poses a threat to life or bodily function? How? (Chest pain, [place], [place], pneumonia, PE, COPD, DKA, ARF, appy, cholecystitis, CVA, Diverticulitis, Homicidal, Suic idal, threat to staff... and all critical care pts) @ -NoQuick note preformed by Dafne Silva PA-C - Lab Data Result diagrams: 03/07/23 15:47 03/07/23 15:47 Lab Results 03/07/23 03/07/23 03/07/23 Range/Units 15:38 15:38 15:47 WBC 5.2 (3.8-10.6) k/uL RBC 4.32 (3.80-5.40) m/uL Hgb 14.4 (11.4-16.0) gm/dL Hct 43.4 (34.0-46.0) % MCV 100.5 H (80.0-100.0) fL MCH 33.4 (25.0-35.0) pg MCHC 33.2 (31.0-37.0) g/dL RDW 11.5 (11.5-15.5) % Plt Count 237 (150-450) k/uL MPV 7.6 Neutrophils % 62 % Lymphocytes % 29 % Monocytes % 5 % Eosinophils % 1 % Basophils % 0 % Neutrophils # 3.3 (1.3-7.7) k/uL Lymphocytes # 1.5 (1.0-4.8) k/uL Monocytes # 0.3 (0-1.0) k/uL Eosinophils # 0.1 (0-0.7) k/uL Basophils # 0.0 (0-0.2) k/uL Sodium (137-145) mmol/L Potassium (3.5-5.1) mmol/L Chloride (98-107) mmol/L Carbon Dioxide (22-30) mmol/L Anion Gap mmol/L BUN (7-17) mg/dL Creatinine (0.52-1.04) mg/dL Est GFR (CKD-EPI)AfAm (>60 ml/min/1.73 sqM) Est GFR (CKD-EPI)NonAf (>60 ml/min/1.73 sqM) Glucose (74-99) mg/dL Plasma Lactic Acid Juve (0.7-2.0) mmol/L Calcium (8.4-10.2) mg/dL Total Bilirubin (0.2-1.3) mg/dL AST (14-36) U/L ALT (4-34) U/L Alkaline Phosphatase (38-126) U/L Total Protein (6.3-8.2) g/dL Albumin (3.5-5.0) g/dL Amylase (30-110) U/L Lipase (23-300) U/L Urine Color Colorless Urine Appearance Clear (Clear) Urine pH 5.5 (5.0-8.0) Ur Specific Geraldine 1.008 (1.001-1.035) Urine Protein Negative (Negative) Urine Glucose (UA) Negative (Negative) Urine Ketones 1+ H (Negative) Urine Blood Trace H (Negative) Urine Nitrite Negative (Negative) Urine Bilirubin Negative (Negative) Urine Urobilinogen <2.0 (<2.0) mg/dL Ur Leukocyte Esterase Negative (Negative) Urine RBC 1 (0-5) /hpf Urine WBC <1 (0-5) /hpf Urine Bacteria Rare H (None) /hpf Urine Mucus Rare H (None) /hpf Urine HCG, Qual Not Detected (Not Detectd) 03/07/23 03/07/23 Range/Units 15:47 15:47 WBC (3.8-10.6) k/uL RBC (3.80-5.40) m/uL Hgb (11.4-16.0) gm/dL Hct (34.0-46.0) % MCV (80.0-100.0) fL MCH (25.0-35.0) pg MCHC (31.0-37.0) g/dL RDW (11.5-15.5) % Plt Count (150-450) k/uL MPV Neutrophils % % Lymphocytes % % Monocytes % % Eosinophils % % Basophils % % Neutrophils # (1.3-7.7) k/uL Lymphocytes # (1.0-4.8) k/uL Monocytes # (0-1.0) k/uL Eosinophils # (0-0.7) k/uL Basophils # (0-0.2) k/uL Sodium 138 (137-145) mmol/L Potassium 4.0 (3.5-5.1) mmol/L Chloride 106 (98-107) mmol/L Carbon Dioxide 22 (22-30) mmol/L Anion Gap 10 mmol/L BUN 13 (7-17) mg/dL Creatinine 0.58 (0.52-1.04) mg/dL Est GFR (CKD-EPI)AfAm >90 (>60 ml/min/1.73 sqM) Est GFR (CKD-EPI)NonAf >90 (>60 ml/min/1.73 sqM) Glucose 94 (74-99) mg/dL Plasma Lactic Acid Juve 0.9 (0.7-2.0) mmol/L Calcium 9.0 (8.4-10.2) mg/dL Total Bilirubin 0.5 (0.2-1.3) mg/dL AST 27 (14-36) U/L ALT 21 (4-34) U/L Alkaline Phosphatase 61 (38-126) U/L Total Protein 7.2 (6.3-8.2) g/dL Albumin 4.4 (3.5-5.0) g/dL Amylase 61 (30-110) U/L Lipase 82 (23-300) U/L Urine Color Urine Appearance (Clear) Urine pH (5.0-8.0) Ur Specific Geraldine (1.001-1.035) Urine Protein (Negative) Urine Glucose (UA) (Negative) Urine Ketones (Negative) Urine Blood (Negative) Urine Nitrite (Negative) Urine Bilirubin (Negative) Urine Urobilinogen (<2.0) mg/dL Ur Leukocyte Esterase (Negative) Urine RBC (0-5) /hpf Urine WBC (0-5) /hpf Urine Bacteria (None) /hpf Urine Mucus (None) /hpf Urine HCG, Qual (Not Detectd) Disposition Clinical Impression: Abdominal pain Disposition: HOME SELF-CARE Condition: Stable Instructions (If sedation given, give patient instructions): Abdominal Pain (ED) Additional Instructions: Please follow up with your primary care provider. Return to the emergency department for new or worsening symptoms. Is patient prescribed a controlled substance at d/c from ED?: No Referrals: Giogrio Mckeon MD [Primary Care Provider] - 1-2 days Abhi Degroot MD [STAFF PHYSICIAN] - 1-2 days
[2023-03-07 16:01] LABS: Appearance,Urine Clear (Clear); Bacteria,Urine Rare /hpf; Bilirubin,Urine Negative (Negative); Blood,Urine Trace (Negative); Color,Urine Colorless; Glucose,Urine (UA) Negative (Negative); Ketones,Urine 1+ (Negative); Leukocyte Esterase,Urine Negative (Negative); Mucus,Urine Rare /hpf; Nitrite,Urine Negative (Negative); PH, Urine 5.5 (5.0-8.0); Protein,Urine Negative (Negative); RBC,Urine 1 /hpf (0-5); Specific Gravity,Urine 1.008 (1.001-1.035); Urobilinogen,Urine <2.0 mg/dL (<2.0); WBC,Urine <1 /hpf (0-5)
[2023-03-07 16:17] LABS: Basophils % (A) 0 %; Eosinophils # (A) 0.1 k/uL (0-0.7); Eosinophils % (A) 1 %; HCT 43.4 % (34.0-46.0); HGB 14.4 gm/dL (11.4-16.0); Lymphocytes # (A) 1.5 k/uL (1.0-4.8); Lymphocytes % (A) 29 %; MCH 33.4 pg (25.0-35.0); MCHC 33.2 g/dL (31.0-37.0); MCV 100.5 fL (80.0-100.0); Mean Platelet Volume 7.6; Monocytes # (A) 0.3 k/uL (0-1.0); Monocytes % (A) 5 %; Neutrophils # (A) 3.3 k/uL (1.3-7.7); Neutrophils % (A) 62 %; Platelet Count 237 k/uL (150-450); RBC 4.32 m/uL (3.80-5.40); RDW 11.5 % (11.5-15.5); WBC 5.2 k/uL (3.8-10.6)
[2023-03-07 16:34] LABS: ALT 21 U/L (4-34); AST 27 U/L (14-36); African American GFR (CKD) >90 (>60 ml/min/1.73 sqM); Albumin 4.4 g/dL (3.5-5.0); Alkaline Phosphatase 61 U/L (38-126); Amylase 61 U/L (30-110); Anion Gap 10 mmol/L; Blood Urea Nitrogen 13 mg/dL (7-17); Carbon Dioxide 22 mmol/L (22-30); Chloride 106 mmol/L (98-107); Glucose 94 mg/dL (74-99); Lipase 82 U/L (23-300); Non-African American GFR(CKD) >90 (>60 ml/min/1.73 sqM); Sodium 138 mmol/L (137-145); Total Bilirubin 0.5 mg/dL (0.2-1.3); Total Protein 7.2 g/dL (6.3-8.2)
[2023-03-07] MEDS ORDERED: MORPHINE SULFATE 4 MG/ML SYRINGE IVP STA (16:56)
[2023-03-07] MEDS ORDERED: SODIUM CHLORIDE 0.9% 1,000 ML IV ONE (16:56)
[2023-03-07 17:33] VITALS: PULSE 60
--- NOTE | 2023-03-07 18:24 | CT ---
EXAMINATION TYPE: CT abdomen pelvis w con DATE OF EXAM: 03/07/2023 COMPARISON: 02/27/2023 INDICATION: RLQ pain x1wk. Not improving. DLP: 566.2 mGycm, Automated exposure control for dose reduction was used. CONTRAST: 100 ml mL of Isovue 300. Study performed without Oral Contrast TECHNIQUE: Axial images were obtained from above the diaphragm to the pubic rami in the axial plane a t 5 mm thick sections. Reconstructed images are reviewed on the computer in the coronal plane. FINDINGS: Limited CT sections are obtained the lung bases. The lung bases are clear. CT ABDOMEN: Liver: Normal Spleen: Normal Pancreas: Normal Adrenal glands: The adrenal glands are normal. Gallbladder: Normal Kidneys: No masses are evident. No hydronephrosis is present. No cysts are present. Aorta: Normal Inferior vena cava: Normal. CT PELVIS: No dilated loops of bowel are evident. Some fluid-filled small bowel loops are in the right lower clement drant may be some mild focal ileus. Scattered diverticuli within the sigmoid colon. This study is wit hout oral contrast limiting bowel evaluation. Appendix: Normal as visualized. Urinary bladder: Normal. Genitourinary structures: Uterus is prominent. There may be small bilateral ovarian cysts present. No free fluid is within the pelvis. Osseous structures: No suspicious lytic or sclerotic lesions evident. IMPRESSION: 1. No suspicious acute abnormality to account for right lower quadrant pain. The appendix as visuali zed appears normal.
[2023-03-07 19:26] VITALS: BP 111/73; RESP 18; TEMP 98.2
== END 2023-03-07 19:10 | disposition home or self-care (01) ==
LOC: EC 14:34
DX: R10.31 Right lower quadrant pain (principal); F17.200 Nicotine dependence, unspecified, uncomplicated
CPT/HCPCS: 36415; 80053; 82150; 83605; 83690; 85025; 81001; 81025; 74177; 99284; 96374; 96361; J2270; Q9967

== ENCOUNTER → 2023-03-07 | Outpatient (CLI) | payer OTHER ==
[2023-03-07 15:02] LABS: HCT 42.3 % (37.2-46.3); HGB 14.3 g/dL (12.0-15.0); MCH 33.4 pg (27.0-32.0); MCHC 33.8 g/dL (32.0-37.0); MCV 98.8 FL (80.0-97.0); Mean Platelet Volume 10.7 FL (9.5-12.2); NRBC Per 100 WBC 0 X 10*3/uL (0.00-0.01); Platelet Count 238 X 10*3/uL (140-440); RBC 4.28 X 10*6/uL (4.10-5.20); RDW 11.8 % (11.5-14.5); WBC 5.67 X 10*3/uL (4.50-10.00)
[2023-03-07 15:38] LABS: ALT 18 U/L (8-44); AST 21 U/L (13-35); Albumin 4.4 g/dL (3.8-4.9); Albumin/Globulin Ratio 1.83 Ratio (1.60-3.17); Alkaline Phosphatase 57 U/L (41-126); Amylase 38 U/L (23-121); BUN/Creat Ratio 17.88 Ratio (12.00-20.00); Blood Urea Nitrogen 14.3 mg/dL (9.0-27.0); Calcium 9.2 mg/dL (8.7-10.3); Carbon Dioxide 21.9 mmol/L (21.6-31.8); Chloride 105 mmol/L (96-109); Globulin 2.4 g/dL (1.6-3.3); Glucose 93 mg/dL (70-110); HCG,Quantitative Serum <3.0 mIU/mL (0.0-6.0); Lipase 24 U/L (14-63); Potassium 4.1 mmol/L (3.5-5.5); Sodium 139 mmol/L (135-145); Total Bilirubin 0.4 mg/dL (0.3-1.2); Total Protein 6.8 g/dL (6.2-8.2)
== END | disposition home or self-care (01) ==
LOC: LABWHC1 09:36
PROVIDERS: ATTEND Obstetrics & Gynecology
DX: R10.2 Pelvic and perineal pain (principal)
CPT/HCPCS: 36415; 80053; 82150; 83690; 84702; 85027

== ENCOUNTER → 2023-03-07 | Outpatient (CLI) | payer OTHER ==
--- NOTE | 2023-03-07 14:15 | US ---
EXAMINATION TYPE: US pelvis complete transvag DATE OF EXAM: 03/07/2023 COMPARISON: NONE CLINICAL INDICATION: Female, 42 years old with history of R10.84 GENERALIZED ABDOMINAL PAIN; pelvic p ain since 02/27/23 TECHNIQUE: Transvaginal (TV) and Transabdominal (TA) . Transabdominal sonographic images of the pel vis were acquired. Transvaginal sonographic images were medically necessary to better assess the fol lowing anatomy: Ovaries Date of LMP: 02/28/23 EXAM MEASUREMENTS: Uterus: 8.3x6.3x5.6 cm Endometrial Stripe: 0.4 cm Right Ovary: 2.5x2.2x2.2 cm Left Ovary: 2.9x2.9x2.0 cm 1. Uterus: Anteverted heterogenous 2. Endometrium: wnl 3. Right Ovary: wnl 4. Left Ovary: wnl 5. Bilateral Adnexa: dilated venous vessels 6. Posterior cul-de-sac: wnl Urinary bladder is sonolucent. The posterior wall appears normal. Exam limited by significant bowel gas. IMPRESSION: 1. No acute ultrasound pelvic abnormality.
== END | disposition home or self-care (01) ==
LOC: RADUSWWP 12:46
PROVIDERS: ATTEND Obstetrics & Gynecology
DX: R10.84 Generalized abdominal pain (principal); R10.2 Pelvic and perineal pain
CPT/HCPCS: 76830; 76856

== ENCOUNTER 2023-06-24 05:39 | Day surgery (SDC) | payer OTHER ==
[2023-06-22 14:43] VITALS: BMI 21.7
[~2023-06-24 05:39] MED LIST changes: -DEXAMETHASONE SOD PHOSPHATE 4 MG/ML 1 ML VIAL IV ONE; -LACTATED RINGERS 1,000 ML IV SCH; -LIDOCAINE 1% (10MG/ML) FOR IV START INTRADERMA PRN; -MIDAZOLAM 2 MG/2 ML VIAL IV PRN; -ONDANSETRON 4 MG/2 ML VIAL IVP ONE; +ONDANSETRON 4 MG/2 ML VIAL IVP PRN
[2023-06-24] MEDS ORDERED: LIDOCAINE 1% (10MG/ML) FOR IV START INTRADERMA PRN (06:07)
[2023-06-24] MEDS: LACTATED RINGERS 1,000 ML IV SCH (06:40)
[2023-06-24 06:52] LABS: Basophils % (A) 1 %; Eosinophils # (A) 0.2 k/uL (0-0.7); Eosinophils % (A) 3 %; HCT 42.3 % (34.0-46.0); HGB 14.1 gm/dL (11.4-16.0); Lymphocytes # (A) 2.1 k/uL (1.0-4.8); Lymphocytes % (A) 36 %; MCH 33.9 pg (25.0-35.0); MCHC 33.2 g/dL (31.0-37.0); MCV 102.2 fL (80.0-100.0); Mean Platelet Volume 7.8; Monocytes # (A) 0.4 k/uL (0-1.0); Monocytes % (A) 6 %; Neutrophils % (A) 52 %; Platelet Count 246 k/uL (150-450); RBC 4.14 m/uL (3.80-5.40); RDW 11.4 % (11.5-15.5); WBC 5.7 k/uL (3.8-10.6)
[2023-06-24] MEDS: ACETAMINOPHEN TAB 500 MG TAB PO PRN (06:53)
[2023-06-24] MEDS: MELOXICAM 7.5 MG TAB PO PRN (06:54)
[2023-06-24] MEDS: ONDANSETRON 4 MG/2 ML VIAL IVP ONE (06:54)
[2023-06-24] MEDS: DEXAMETHASONE SOD PHOSPHATE 4 MG/ML 1 ML VIAL IV ONE (06:54)
[2023-06-24] MEDS ORDERED: SCOPOLAMINE 1 MG/72 HR PATCH TRANSDERM STA (06:59)
--- NOTE | 2023-06-24 06:59 | P.GSHP ---
History of Present Illness H&P Date: 06/24/23 CHIEF COMPLAINT: History of intra-abdominal adhesions HISTORY OF PRESENT ILLNESS: The patient is a 42-year-old female who presents with history of intra-abdominal adhesions from multiple prior surgeries including increasing abdominal pain. She now presents for diagnostic laparoscopy including lysis of adhesions. PAST MEDICAL HISTORY: Please see list. PAST SURGICAL HISTORY: Please see list. MEDICATIONS: Please see list. ALLERGIES: Please see list. SOCIAL HISTORY: No illicit drug use FAMILY HISTORY: No reports of Crohn disease or ulcerative colitis. REVIEW OF ORGAN SYSTEMS: CONSTITUTIONAL: Denies any fever or chills. Denies recent weight loss or weight gain. HEENT: Denies any trouble with vision, hearing or nosebleeds. No difficulty swallowing. LYMPHATIC: The patient denies any lumps and bumps around the neck. ENDOCRINE: Denies any thyroid disorders. Denies any blood sugar glucose intolerance. RESPIRATORY: Denies pneumonia. Denies any troubles with breathing or dyspnea on exertion. CARDIOVASCULAR: Denies any chest pain, palpitations, or recent heart attacks. GASTROINTESTINAL: Denies heart burn, constipation or bright red blood per rectum. GENITOURINARY: Denies any blood in urine or increased urinary frequency. MUSCULOSKELETAL: Denies any back pain, stiffness, joint arthritis. NEUROLOGIC: Denies any numbness or tingling along the distal extremities. No seizure disorders or headaches. PSYCHIATRIC: Denies depression or suidical ideation. HEMATOLOGIC: Denies any abnormal bleeding or bruising. BREASTS: Denies any breast lumps, pain or nipple discharge. PHYSICAL EXAM: GENERAL: Well-developed pleasant male in no acute distress. HEENT: No scleral icterus. Extraocular movements grossly intact. Moist buccal mucosa. NECK: Supple without lymphadenopathy. CHEST: Unlabored respirations. Equal bilateral excursions. CARDIOVASCULAR: Regular rate and rhythm. Distal 2+ pulses. ABDOMEN: Soft, nondistended. Tender generalized abdominal pain. MUSCULOSKELETAL: No clubbing, cyanosis, or edema. SKIN: Well perfused. PSYCH: Alert and oriented to self, place and time ASSESSMENT: 1. Diffuse abdominal pain. 2. History of multiple abdominal surgeries. 3. Intra-abdominal adhesions. PLAN: 1. Robotic lysis of adhesions were described in detail including risk of injury to the intestine, need for further surgery, and open technique. 2. DVT prophylaxis. 3. Antibiotic prophylaxis. 4. She is elevated risk of complications due to previous multiple abdominal surgeries. 5. CBC labs on the day of her procedure. 6. Scopolamine patch prescribed for post op nausea and vomiting. Past Medical History Past Medical History: No Reported History Additional Past Medical History / Comment(s): MIGRAINES History of Any Multi-Drug Resistant Organisms: None Reported Past Surgical History: Bowel Resection, Section, Tubal Ligation Additional Past Surgical History / Comment(s): EXPLORATORY LAP WITH GASTRORRHAPHY DUE TO GASTRIC INJURY DURING TUBAL Past Anesthesia/Blood Transfusion Reactions: Motion Sickness Past Psychological History: No Psychological Hx Reported Smoking Status: Current every day smoker Past Alcohol Use History: Occasional Additional Past Alcohol Use History / Comment(s): STARTED SMOKING AT AGE 16+ SMOKES 1/4 PPD Past Drug Use History: None Reported - Past Family History Father Family Medical History: No Reported History Medications and Allergies Home Medications Medication Instructions Recorded Confirmed Type No Known Home Medications 06/22/23 06/24/23 History Allergies Allergy/AdvReac Type Severity Reaction Status Date / Time No Known Allergies Allergy Verified 06/24/23 06:15 Surgical - Exam Vital Signs Temp Pulse Resp BP Pulse Ox 97.1 F L 65 18 107/52 99 06/24/23 06:20 06/24/23 06:20 06/24/23 06:20 06/24/23 06:20 06/24/23 06:20 Results - Labs 06/24/23 06:31 Abnormal Lab Results - Last 24 Hours (Table) 06/24/23 Range/Units 06:31 MCV 102.2 H (80.0-100.0) fL RDW 11.4 L (11.5-15.5) %
[2023-06-24] MEDS ORDERED: MIDAZOLAM 2 MG/2 ML VIAL IV PRN (07:00)
[2023-06-24] MEDS ORDERED: HYDROmorphone 0.5 MG/0.5 ML SYRINGE IVP PRN (07:00)
[2023-06-24] MEDS: HEPARIN SODIUM,PORCINE 5,000 UNIT/ML 1 ML VIAL SQ PRN (07:05)
[2023-06-24] MEDS: SCOPOLAMINE 1 MG/72 HR PATCH TRANSDERM ONE (07:05)
[2023-06-24] MEDS: LIDOCAINE 1%-EPI 1:100,000 20 ML VIAL SQ ONE ×2 (07:16→07:59)
[2023-06-24] MEDS ORDERED: KETOROLAC 30 MG/ML 1 ML VIAL ONE (07:37)
[2023-06-24] MEDS ORDERED: ceFAZolin 1 GM/50 ML BAG (PMX) ONE (07:37)
[2023-06-24] MEDS ORDERED: LIDOCAINE 1% INJ 10MG/ML (20 ML MDV) ONE (07:37)
[2023-06-24] MEDS ORDERED: PROPOFOL 10 MG/ML 20 ML VIAL IV ONE (07:37)
[2023-06-24] MEDS ORDERED: ROCURONIUM 10 MG/ML (5 ML VIAL) IV ONE (07:37)
[2023-06-24] MEDS ORDERED: NEOSTIGMINE 1 MG/ML 10 ML VIAL ONE (07:37)
[2023-06-24] MEDS ORDERED: MIDAZOLAM 2 MG/2 ML VIAL ONE (07:37)
[2023-06-24] MEDS ORDERED: SUCCINYLCHOLINE CHLORIDE 200 MG/10 ML VIAL IV ONE (07:37)
[2023-06-24] MEDS: SODIUM CHLORIDE 0.9% 50 ML with ceFAZolin 2,000 MG IV ONE (07:37)
[2023-06-24] MEDS ORDERED: GLYCOPYRROLATE 0.2 MG/ML 2 ML VIAL ONE (07:37)
[2023-06-24] MEDS ORDERED: fentaNYL (PF) 50 MCG/ML 2 ML AMP ONE (07:37)
[2023-06-24 08:53] VITALS: RESP 16; TEMP 98
--- NOTE | 2023-06-24 09:19 | P.OP ---
Date of Procedure: 06/24/23 Description of Procedure: SURGEON: YOLI PIPER MD PREOPERATIVE DIAGNOSES: 1. Generalized abdominal pain 2. History of multiple abdominal surgeries POSTOPERATIVE DIAGNOSES: 1. Generalized abdominal pain 2. History of multiple abdominal surgeries 3. Umbilical hernia 4. Small bowel diverticulum, proximal ileum OPERATION: 1. Robotic-assisted da Dariela Xi laparoscopic with lysis of adhesions ESTIMATED BLOOD LOSS: 5 mL. SPECIMENS REMOVED: None. COMPLICATIONS: None. OPERATIVE FINDINGS: 1. No inguinal hernias identified 2. Highly redundant cecum with appendix along the pelvis/bladder 3. Small bowel intermittent dilation involving the ileum and jejunum 4. Mildly thickened gallbladder wall for chronic cholecystitis 5. Adhesion along the right lateral abdominal wall lysed involving the ascending colon 6. Previous gastropexy identified along the anterior mid stomach 7. 1 cm umbilical hernia reducible 8. Small bowel diverticulum at proximal ileum INDICATIONS: The patient is a 42-year-old female who presents with with chronic abdominal pain over the last 2 years since her prior gastric injury from a tubal ligation. Surgical intervention with diagnostic laparoscopy, lysis of adhesions was described. Informed consent was obtained. Robotic assisted laparoscopic approach was described. Benefits and risks of the procedure including but not limited to bleeding, infection was described. Informed consent was obtained. DESCRIPTION OF PROCEDURE: Patient was brought to the operating room, placed in supine position. After general induction, the abdomen had been prepped and draped in standard sterile fashion. The robotic da Dariela XI system was primed. After a timeout protocol was performed, the patient had been prepped and draped in standard sterile fashion. The robot was docked along the left lateral abdomen. Please note prior to docking of the robot; however, a 5 mm 0 degrees laparoscopic trocar entry was performed along the left upper quadrant. Next, three 8 mm robotic ports were placed along the left lateral abdominal wall abdomen. Trochars were placed at least 10 to 15 cm away from the target anatomy. Instruments including graspers and scissors with cautery were interchanged by the assistant associate full professor. I had sat at the console. Adhesions along the right lateral abdominal wall was identified and lysed using vessel sealer. The bowel was investigated from the terminal ileum proximally to the ligament of Treitz. Intermittent small bowel dilation was identified. Additionally, the cecum was highly redundant laying on top of the bladder with the appendix posterior to the bladder and within normal limits. The ascending transverse colon was unremarkable. Sigmoid colon was mildly redundant. No small bowel ischemia was identified. The gallbladder wall was thickened suspicious for chronic cholecystitis. Previous gastric appear along the mid stomach was identified with a suture. The small bowel was investigated again from the ligament of Treitz distally with no other pathology identified with exception of a small diverticulum of the ileum. The robot was undocked. All pneumoperitoneum and instruments were evacuated from the abdominal cavity. The incisions were reapproximated using 4-0 Monocryl in an interrupted subcuticular fashion. Please note along the trocar sites, local anesthetic was placed as a field block prior to insertion of all instruments. Exofin was applied to the skin. At the end of the procedure needle, sponge, and instrument count had been verified correct by the hand frame surgical elastic knitter. The patient was transferred to postanesthesia care unit in stable condition. Plan - Discharge Summary Discharge Rx Participant: No New Discharge Prescriptions: New Simethicone [Gas-X] 125 mg PO AC-TID PRN #20 capsule PRN Reason: Pain Ibuprofen [Motrin] 600 mg PO Q8HR PRN #30 tab PRN Reason: Pain Acetaminophen Tab [Tylenol Tab] 1,000 mg PO Q6HR PRN #30 tablet PRN Reason: Pain Discharge Medication List Acetaminophen Tab [Tylenol Tab] 1,000 mg PO Q6HR PRN #30 tablet 06/24/23 [Rx] Ibuprofen [Motrin] 600 mg PO Q8HR PRN #30 tab 06/24/23 [Rx] Simethicone [Gas-X] 125 mg PO AC-TID PRN #20 capsule 06/24/23 [Rx] Follow up Appointment(s)/Referral(s): Yoli Piper MD [STAFF PHYSICIAN] - 06/28/23 (TELEHEALTH - WILL CALL YOU BETWEEN 9 am to 8 pm) Patient Instructions/Handouts: Lysis of Abdominal Adhesions (GEN) Activity/Diet/Wound Care/Special Instructions: TELEHEALTH - WILL CALL YOU BETWEEN 9 am to 8 pm Recommend low-fat diet for the next 2 days. No lifting over 10 pounds in 2 weeks until July 07June shower. No bath tub soaks for two weeks until July 07 Diet as tolerated. Use Tylenol, simethicone and ibuprofen or Aleve scheduled for the next 24-48 hours for best pain relief. Use ice along incisions for today to prevent swelling. Discharge Disposition: HOME SELF-CARE
[2023-06-24] MEDS: IBUPROFEN 600 MG TAB PO ONE (09:38)
[2023-06-24 10:27] VITALS: BP 103/64; PULSE 78
== END 2023-06-24 10:23 | disposition home or self-care (01) ==
LOC: OR 05:39
PROVIDERS: ATTEND Surgery Plastic and Reconstructive Surgery
DX: K66.0 Peritoneal adhesions (postprocedural) (postinfection) (principal); K42.9 Umbilical hernia without obstruction or gangrene; K57.10 Diverticulosis of small intestine without perforation or abscess without bleeding; G43.909 Migraine, unspecified, not intractable, without status migrainosus; F10.90 Alcohol use, unspecified, uncomplicated; F17.210 Nicotine dependence, cigarettes, uncomplicated; Z98.51 Tubal ligation status; Z79.899 Other long term (current) drug therapy; Z98.890 Other specified postprocedural states; Z98.891 History of uterine scar from previous surgery
CPT/HCPCS: 81025; 85025; 44180; J2250; J0330; J1644; J1100; J2710; J2405; J0690 ×2; J2001; J3010; J1885; J2704

== ENCOUNTER → 2023-07-13 | Outpatient (CLI) | payer OTHER ==
--- NOTE | 2023-07-13 16:23 | US ---
EXAMINATION TYPE: US gallbladder DATE OF EXAM: 07/13/2023 COMPARISON: CT abdomen pelvis 03/07/2023 CLINICAL INDICATION: Female, 42 years old with history of R10.11 RIGHT UPPER QUADRANT PAIN; pain TECHNIQUE: FINDINGS: EXAM MEASUREMENTS: Liver Length: 12.7 cm Gallbladder Wall: .1 cm CBD: .5 cm Right Kidney: 9.7 x 3.8 x 4.2 cm FINISHER HAND NOTES: Pancreas: wnl Liver: wnl Gallbladder: No stones seen. No wall thickening or surrounding fluid. Evidence for sonographic Santos's sign: No CBD: wnl Right Kidney: No hydronephrosis or masses seen . No nephrolithiasis. IMPRESSION: Unremarkable right upper quadrant ultrasound.
== END | disposition home or self-care (01) ==
LOC: RADUSWWP 07:07
PROVIDERS: ATTEND Surgery Plastic and Reconstructive Surgery
DX: R10.11 Right upper quadrant pain (principal)
CPT/HCPCS: 76705

== ENCOUNTER → 2023-07-14 | Outpatient (CLI) | payer OTHER ==
--- NOTE | 2023-07-14 17:38 | NM ---
EXAMINATION TYPE: NM hepatobiliary w EF DATE OF EXAM: 07/14/2023 COMPARISON: 07/13/2023 ultrasound CLINICAL INDICATION: Female, 42 years old with history of R10.11 RIGHT UPPER QUADRANT PAIN; TECHNIQUE: After the intravenous administration of 5.0 mCi Tc 99m Mebrofenin hepatobiliary scintigrap hy is performed. Immediate images post injection. FINDINGS: There is satisfactory initial accumulation of tracer by the liver. The gallbladder is visualized wit hin 6 minutes. The small bowel activity is noted within 18 minutes. At one hour 8 ounces of oral en sure plus is given to mimic CCK and gallbladder ejection fraction is calculated at 73 %, in the ari l range. IMPRESSION: No scintigraphic evidence for acute/chronic cholecystitis or biliary dyskinesia.
== END | disposition home or self-care (01) ==
LOC: RADNMMAIN 12:48
PROVIDERS: ATTEND Surgery Plastic and Reconstructive Surgery
DX: R10.11 Right upper quadrant pain (principal)
CPT/HCPCS: 78226; A9537

== ENCOUNTER 2023-09-22 10:07 | Day surgery (SDC) | payer OTHER ==
[2023-09-20 13:39] VITALS: BMI 21.1
--- NOTE | 2023-09-22 07:44 | P.GSHP ---
History of Present Illness H&P Date: 09/22/23 CHIEF COMPLAINT: GERD and colon screen HISTORY OF PRESENT ILLNESS: The patient is a 43-year-old female who presents with gastroesophageal reflux disease and need for colon screen. Upper and lower endoscopy were offered for further evaluation and management. PAST MEDICAL HISTORY: Please see list. PAST SURGICAL HISTORY: Please see list. MEDICATIONS: Please see list. ALLERGIES: Please see list. SOCIAL HISTORY: No illicit drug use FAMILY HISTORY: No reports of Crohn disease or ulcerative colitis. REVIEW OF ORGAN SYSTEMS: CONSTITUTIONAL: No reports of fevers or chills. GI: Denies any blood in stools or constipation. PHYSICAL EXAM: VITAL SIGNS: Stable GENERAL: Well-developed pleasant in no acute distress. HEENT: No scleral icterus. Extraocular movements grossly intact. Moist buccal mucosa. NECK: Supple without lymphadenopathy. CHEST: Unlabored respirations. Equal bilateral excursions. CARDIOVASCULAR: Regular rate and rhythm. Distal 2+ pulses. ABDOMEN: Soft, nondistended. MUSCULOSKELETAL: No clubbing, cyanosis, or edema. ASSESSMENT: 1. Gastroesophageal reflux disease 2. Colon screen. PLAN: 1. Recommend proceeding with an upper and lower endoscopy Past Medical History Past Medical History: No Reported History Additional Past Medical History / Comment(s): MIGRAINES History of Any Multi-Drug Resistant Organisms: None Reported Past Surgical History: Bowel Resection, Section, Tubal Ligation Additional Past Surgical History / Comment(s): EXPLORATORY LAP WITH GASTRORRHAPHY DUE TO GASTRIC INJURY DURING TUBAL Past Anesthesia/Blood Transfusion Reactions: No Reported Reaction, Motion Sickness Additional Past Anesthesia/Blood Transfusion Reaction / Comment(s): no blood transfusion Smoking Status: Current every day smoker - Past Family History Father Family Medical History: No Reported History Mother Family Medical History: Cancer Additional Family Medical History / Comment(s): blood Medications and Allergies Home Medications Medication Instructions Recorded Confirmed Type Acetaminophen Tab [Tylenol Tab] 1,000 mg PO Q6HR PRN #30 tablet 06/24/23 09/20/23 Rx Ibuprofen [Motrin] 600 mg PO Q8HR PRN #30 tab 06/24/23 09/20/23 Rx Simethicone [Gas-X] 125 mg PO AC-TID PRN #20 capsule 06/24/23 09/20/23 Rx Allergies Allergy/AdvReac Type Severity Reaction Status Date / Time No Known Allergies Allergy Verified 09/20/23 13:34
[2023-09-22] MEDS: IV FLUID CONTINUATION 1,000 ML IV ONE (10:39)
[2023-09-22 11:02] VITALS: TEMP 97.8
[2023-09-22] MEDS: LACTATED RINGERS 1,000 ML IV SCH (11:03)
[2023-09-22] MEDS ORDERED: LIDOCAINE 1% INJ 10MG/ML (20 ML MDV) ONE (11:10)
[2023-09-22] MEDS ORDERED: PROPOFOL 10 MG/ML 20 ML VIAL IV ONE (11:10)
[2023-09-22 12:05] VITALS: BP 100/67; PULSE 51; RESP 18
--- NOTE | 2023-09-22 12:31 | P.PCN ---
Date of Procedure: 09/22/23 Description of Procedure: PREOPERATIVE DIAGNOSIS: Change in bowel habit POSTOPERATIVE DIAGNOSIS: Tubular adenoma sigmoid colon OPERATION: Colonoscopy to the ileocecal valve and appendiceal orifice, cecum Colonoscopy with hot snare polypectomy SURGEON: Yoli Piper MD. ANESTHESIA: MAC. INDICATIONS: The patient is an 43-year-old female who presents with change in bowel habits. Benefits and risks were described and informed consent was obtained. DESCRIPTION OF PROCEDURE: The patient had undergone GoLytely prep. The patient had been brought into the operating room and laid in the left lateral decubitus position. After adequate intravenous sedation, the rectum was examined with 2% lidocaine jelly. External hemorrhoids were encountered. The rectal tone was within normal limits. No lesions were palpated in the rectal vault. An Olympus colonoscope was advanced until the cecum, ileocecal valve and appendiceal orifice were clearly viewed. The prep was fair. No sigmoid diverticulosis was encountered. Colonic polyps were found and removed. No evidence of focal colitis was found. Retroflexion of the scope demonstrated grade 2 internal hemorrhoids without active bleeding or inflammation. The colon was desufflated. The patient had tolerated the procedure well. Withdrawal time was over 6 minutes. FINDINGS: Aronchick preparation quality scale 3 (1-5) Internal hemorrhoids, grade 1 External hemorrhoids, grade 1. No arteriovenous malformations. No sigmoid diverticulosis Removal of 3 polyps: - Snare polypectomy 10 cm from the anal verge x 3, 5 to 7 mm tubulovillous adenomas No focal colitis. RECOMMENDATIONS: Recommend repeat colonoscopy 2 years, 2025, age 45 Plan - Discharge Summary Discharge Rx Participant: No New Discharge Prescriptions: Continue Simethicone [Gas-X] 125 mg PO AC-TID PRN #20 capsule PRN Reason: Pain Ibuprofen [Motrin] 600 mg PO Q8HR PRN #30 tab PRN Reason: Pain Acetaminophen Tab [Tylenol] 1,000 mg PO Q6HR PRN #30 tablet PRN Reason: Pain Discharge Medication List Acetaminophen Tab [Tylenol] 1,000 mg PO Q6HR PRN #30 tablet 06/24/23 [Rx] Ibuprofen [Motrin] 600 mg PO Q8HR PRN #30 tab 06/24/23 [Rx] Simethicone [Gas-X] 125 mg PO AC-TID PRN #20 capsule 06/24/23 [Rx] Follow up Appointment(s)/Referral(s): Yoli Piper MD [STAFF PHYSICIAN] - 10/18/23 2:30 pm Patient Instructions/Handouts: *Surgery [facility] - (Anesthesia) Discharge Instructions Outpatient Surgery, Colorectal Polyps (GEN), Gastritis (DC) Activity/Diet/Wound Care/Special Instructions: Repeat colonoscopy age 45 Discharge Disposition: HOME SELF-CARE
--- NOTE | 2023-09-22 12:33 | P.PCN ---
Date of Procedure: 09/22/23 Description of Procedure: PREOPERATIVE DIAGNOSIS: Peptic ulcer disease POSTOPERATIVE DIAGNOSIS: Gastroesophageal reflux disease. Gastritis. OPERATION: Esophagogastroduodenoscopy with biopsies along esophagus, antrum and duodenum SURGEON: Yoli Piper MD ANESTHESIA: MAC. INDICATIONS: The patient is a 43-year-old female who presents with reflux disease. Benefits and risks of the procedure were described. Informed consent was obtained. DESCRIPTION: The patient was brought into the endoscopy suite and laid in the left lateral decubitus position. An Olympus gastroscope was passed along the posterior oropharynx down to the distal esophagus where the squamocolumnar junction was encountered at 37 cm from the incisors. The stomach was entered and no bile reflux was found. Additional findings are listed below. Biopsies with cold forceps were obtained of the antrum. The first through third portion of the duodenum was examined. Retroflexion of the scope confirmed Hill grade 2 lower esophageal valve. The squamocolumnar junction demonstrated LA grade B erosive esophagitis. The stomach was desufflated. The patient tolerated the procedure well. FINDINGS: Squamocolumnar junction 37 cm from the incisors. Diaphragmatic hiatus at 37 cm. Hill grade 2 lower esophageal valve. LA grade B erosive esophagitis. Biopsies obtained. Biopsies obtained of the duodenum. Chronic gastritis with biopsies obtained. RECOMMENDATIONS: Upper endoscopy as needed.
== END 2023-09-22 12:58 | disposition home or self-care (01) ==
LOC: ORWHC2ENDO 10:07
PROVIDERS: ATTEND Surgery Plastic and Reconstructive Surgery
DX: D12.5 Benign neoplasm of sigmoid colon (principal); K62.1 Rectal polyp; K64.4 Residual hemorrhoidal skin tags; K29.50 Unspecified chronic gastritis without bleeding; K27.9 Peptic ulcer, site unspecified, unspecified as acute or chronic, without hemorrhage or perforation; K21.00 Gastro-esophageal reflux disease with esophagitis, without bleeding; G43.909 Migraine, unspecified, not intractable, without status migrainosus; F17.200 Nicotine dependence, unspecified, uncomplicated; Z98.51 Tubal ligation status; Z79.899 Other long term (current) drug therapy
CPT/HCPCS: 81025; 88305; 45385; 43239; J2001; J2704

== ENCOUNTER 2024-01-12 10:27 | Day surgery (SDC) | payer OTHER ==
[2024-01-10 09:03] VITALS: BMI 21.9
--- NOTE | 2024-01-12 08:21 | P.GSHP ---
History of Present Illness H&P Date: 01/12/24 CHIEF COMPLAINT: Cholecystitis HISTORY OF PRESENT ILLNESS: The patient is a 43-year-old female who presents with history of epigastric including right upper quadrant abdominal pain. She underwent diagnostic studies for her gallbladder. Separately her clinical picture was consistent with cholecystitis. Now she presents for surgical intervention. PAST MEDICAL HISTORY: Please see list PAST SURGICAL HISTORY: Please see list MEDICATIONS: Please see list ALLERGIES: Please see list SOCIAL HISTORY: Please see list FAMILY HISTORY: Please see list REVIEW OF ORGAN SYSTEMS: CONSTITUTIONAL: No reports of fevers or chills. HEENT: Denies any troubles with the vision or hearing. ENDOCRINE: No reports of hypothyroidism. No diabetes. RESPIRATORY: No recent pneumonias. CARDIOVASCULAR: Denies chest pain or palpitations GI: No blood in stools or constipation. MUSCULOSKELETAL: Has occasional joint pain including back pain. NEURO: No seizure disorders or headaches. No recent stroke. PSYCH: No depression or suicidal ideation. GENITOURINARY: No active blood in urine. No urinary hesitancy. HEMATOLOGIC: No personal or family history of DVTs or pulmonary emboli. SKIN: No skin cancer. PHYSICAL EXAM: VITAL SIGNS: Afebrile vital signs stable GENERAL: Well-developed pleasant in no acute distress. HEENT: No scleral icterus. Extraocular movements grossly intact. Moist buccal mucosa. NECK: Supple without lymphadenopathy. CHEST: Unlabored respirations. Equal bilateral excursions. CARDIOVASCULAR: Regular rate regular rhythm rhythm. Distal 2+ pulses. ABDOMEN: Soft, nondistended. Tender along the epigastrium and right upper quadrant. MUSCULOSKELETAL: No clubbing, cyanosis, or edema. NEURO: Cranial nerves II to XII within normal limits. No focal or lateralizing signs. PSYCH: Alert and oriented to person, place and time. SKIN: Well-perfused good skin turgor. ASSESSMENT: 1. Epigastric and right upper quadrant abdominal pain 2. Chronic cholecystitis 3. Symptomatic gallstones. PLAN: 1. Will need a robotic cholecystectomy possible open. Benefits and risks were described. 2. Heparin for DVT prophylaxis 5000 units. 3. Antibiotic prophylaxis. 4. CBC and CMP on day of procedure 5. Non-narcotic pre and post op pain management reviewed. 6. Indocyanine green for biliary imaging. Past Medical History Past Medical History: No Reported History Additional Past Medical History / Comment(s): MIGRAINES , GALLBLADDER DISORDER History of Any Multi-Drug Resistant Organisms: None Reported Past Surgical History: Bowel Resection, Section, Tubal Ligation Additional Past Surgical History / Comment(s): EXPLORATORY LAP WITH GASTRORRHAPHY DUE TO GASTRIC INJURY DURING TUBAL, COLONOSCOPY/EKG Past Anesthesia/Blood Transfusion Reactions: No Reported Reaction, Motion Sickness Additional Past Anesthesia/Blood Transfusion Reaction / Comment(s): no blood transfusion Smoking Status: Current every day smoker - Past Family History Father Family Medical History: No Reported History Mother Family Medical History: Cancer Additional Family Medical History / Comment(s): blood Medications and Allergies Home Medications Medication Instructions Recorded Confirmed Type No Known Home Medications 01/10/24 01/10/24 History Allergies Allergy/AdvReac Type Severity Reaction Status Date / Time metoclopramide [From Reglan] Allergy Swelling Verified 01/10/24 08:58
[~2024-01-12 10:27] MED LIST changes: +INDOCYANINE GREEN 25 MG VIAL IV STA; +LIDOCAINE 1% (10MG/ML) FOR IV START INTRADERMA PRN; -Pre Op ABX Message 1 EACH MISC MISCELLANE ONE; +droPERidol 5 MG/2 ML VIAL IVP ONE
[2024-01-12] MEDS: ACETAMINOPHEN TAB 500 MG TAB PO PRN (11:18)
[2024-01-12] MEDS: LACTATED RINGERS 1,000 ML IV SCH (11:22)
[2024-01-12] MEDS: IV FLUID CONTINUATION 1,000 ML IV ONE ×2 (11:22→15:30)
[2024-01-12] MEDS: DEXAMETHASONE SOD PHOSPHATE 4 MG/ML 1 ML VIAL IV ONE (11:27)
[2024-01-12] MEDS: ONDANSETRON 4 MG/2 ML VIAL IVP ONE (11:27)
[2024-01-12] MEDS: HEPARIN SODIUM,PORCINE 5,000 UNIT/ML 1 ML VIAL SQ PRN (11:30)
[2024-01-12 11:48] LABS: ALT 18 U/L (4-34); African American GFR (CKD) >90 (>60 ml/min/1.73 sqM); Albumin 4.4 g/dL (3.5-5.0); Anion Gap 5 mmol/L; Blood Urea Nitrogen 13 mg/dL (7-17); Calcium 9.1 mg/dL (8.4-10.2); Carbon Dioxide 25 mmol/L (22-30); Chloride 109 mmol/L (98-107); Glucose 90 mg/dL (74-99); Non-African American GFR(CKD) >90 (>60 ml/min/1.73 sqM); Sodium 139 mmol/L (137-145); Total Bilirubin 0.7 mg/dL (0.2-1.3); Total Protein 7.3 g/dL (6.3-8.2)
[2024-01-12 11:56] LABS: AST 31 U/L (14-36); Potassium 4.8 mmol/L (3.5-5.1)
[2024-01-12 11:57] LABS: Alkaline Phosphatase 47 U/L (38-126)
[2024-01-12 12:08] LABS: Basophils % (A) 0 %; Eosinophils # (A) 0.2 k/uL (0-0.7); Eosinophils % (A) 3 %; HGB 14.6 gm/dL (11.4-16.0); Lymphocytes # (A) 1.8 k/uL (1.0-4.8); Lymphocytes % (A) 27 %; MCH 33.5 pg (25.0-35.0); MCHC 33.1 g/dL (31.0-37.0); Monocytes # (A) 0.4 k/uL (0-1.0); Monocytes % (A) 6 %; Neutrophils # (A) 4.2 k/uL (1.3-7.7); Neutrophils % (A) 62 %; Platelet Count 230 k/uL (150-450); RBC 4.36 m/uL (3.80-5.40); RDW 12.3 % (11.5-15.5); WBC 6.7 k/uL (3.8-10.6)
[2024-01-12] MEDS: FAMOTIDINE 20 MG/2 ML VIAL IV STA (12:38)
[2024-01-12] MEDS ORDERED: KETAMINE HCL IN 0.9 % NACL 50 MG/5 ML SYRINGE ONE (12:47)
[2024-01-12] MEDS ORDERED: SUCCINYLCHOLINE CHLORIDE 200 MG/10 ML VIAL IV ONE (12:47)
[2024-01-12] MEDS ORDERED: PROPOFOL 10 MG/ML 20 ML VIAL IV ONE (12:47)
[2024-01-12] MEDS ORDERED: fentaNYL (PF) 50 MCG/ML 2 ML AMP ONE (12:47)
[2024-01-12] MEDS ORDERED: ROCURONIUM 10 MG/ML (5 ML VIAL) IV ONE (12:47)
[2024-01-12] MEDS ORDERED: NEOSTIGMINE 1 MG/ML 10 ML VIAL ONE (12:47)
[2024-01-12] MEDS ORDERED: MIDAZOLAM 2 MG/2 ML VIAL ONE (12:47)
[2024-01-12] MEDS ORDERED: LIDOCAINE 1% INJ 10MG/ML (20 ML MDV) ONE (12:47)
[2024-01-12] MEDS ORDERED: GLYCOPYRROLATE 0.2 MG/ML 2 ML VIAL ONE (12:47)
[2024-01-12] MEDS: LIDOCAINE 1%-EPI 1:100,000 20 ML VIAL SQ ONE (13:12)
[2024-01-12 13:58] VITALS: TEMP 97.1
--- NOTE | 2024-01-12 14:15 | P.OP ---
Date of Procedure: 01/12/24 Description of Procedure: SURGEON: YOLI PIPER MD PREOPERATIVE DIAGNOSES: 1. Chronic cholecystitis 2. Right upper quadrant abdominal pain POSTOPERATIVE DIAGNOSES: 1. Chronic cholecystitis 2. Right upper quadrant abdominal pain OPERATION: Robotic-assisted da Dariela Xi laparoscopic cholecystectomy, multiport with FIREFLY ESTIMATED BLOOD LOSS: mL. SPECIMENS REMOVED: Gallbladder. COMPLICATIONS: None. OPERATIVE FINDINGS: 1. Chronic cholecystitis INDICATIONS: The patient is a 43-year-old female who presents with persistent right upper quadrant abdominal pain from chronic cholecystitis for over 6 months to a year. Robotic assisted laparoscopic approach was described. Benefits and risks of the procedure including but not limited to bleeding, infection, injury to the biliary tree was described. Informed consent was obtained. DESCRIPTION OF PROCEDURE: Patient was brought to the operating room, placed in supine position. After general induction, the abdomen had been prepped and draped in standard sterile fashion. The robotic da Dariela XI system was primed. After a timeout protocol was performed, the patient had been prepped and draped in standard sterile fashion. The patient was injected with indocyanine green. A 5 mm 0 degrees laparoscopic trocar entry was performed along the left upper quadrant. The abdomen insufflated to 15 mmHg pressure which was tolerated well. Diagnostic laparoscopy demonstrated no injury to bowel viscera or mesentery. Th e liver surface was unremarkable. Next, two 8 mm robotic ports were placed along the right upper abdomen. The camera 8-mm port was maintained along the epigastrium. Another 8 mm port was placed along the left upper abdominal wall after exchanging the 5 mm port. Please note that the ports were placed at least 10 to 15 cm away from the target anatomy of the gallbladder. The robot was docked along the left lateral abdomen. The patient was repositioned in reverse Trendelenburg position. Using a grasper for arm 3, a grasper for arm 4, including hook cautery for arm 1, the robotic system was docked and primed as described. Instruments were interchanged by the office services assistant including hook cautery, Bovie cautery and clip appliers. I had sat at the console. Next attention was brought to the infundibulum and cystic structures. The infundibulum and cystic duct were dissected free from surrounding tissues. The cystic duct was isolated. FIREFLY was used to identify the cystic artery and cystic structures. A critical view of safety was obtained. Large PLASTIC clips were used throughout the entire case. Using a clip pig machine crane operator, 3 clips were placed at the junction of the infundibulum an d cystic duct. The cystic duct was divided between clips. Next, the cystic artery was similarly clipped and cauterized. Electro-Bovie cautery was used to remove the gallbladder from the hepatic fossa. Hemostasis was checked and found to be adequate. The robot was undocked. I re-scrubbed into the case. Using a 10 mm Endo Catch bag via the left upper quadrant incision, the specimen was removed from the abdominal cavity. All pneumoperitoneum instruments were evacuated from the abdominal cavity. The incisions were reapproximated using 4-0 Monocryl in an interrupted subcuticular fashion. Fascial defects were less than 8 mm in size. Please note along the trocar sites, local anesthetic was placed as a field block prior to insertion of all instruments. Liquid glue was applied to the skin. At the end of the procedure needle, sponge, and instrument count had been verified correct by the master automotive glass technician. The patient was transferred to postanesthesia care unit in stable condition. Intraoperative films were shared with the patient's family. Plan - Discharge Summary Discharge Rx Participant: No New Discharge Prescriptions: New Ibuprofen [Motrin] 600 mg PO Q8HR PRN #30 tab PRN Reason: Pain Simethicone 40 mg/0.6 ml Drops [Mylicon Drops] 40 mg PO Q6HR PRN #30 ml PRN Reason: Abdominal Distention Acetaminophen Tab [Tylenol Tab] 1,000 mg PO Q6HR PRN #30 tablet PRN Reason: Pain Discharge Medication List Acetaminophen Tab [Tylenol Tab] 1,000 mg PO Q6HR PRN #30 tablet 01/12/24 [Rx] Ibuprofen [Motrin] 600 mg PO Q8HR PRN #30 tab 01/12/24 [Rx] Simethicone 40 mg/0.6 ml Drops [Mylicon Drops] 40 mg PO Q6HR PRN #30 ml 01/12/24 [Rx] Follow up Appointment(s)/Referral(s): Yoli Piper MD [STAFF PHYSICIAN] - 01/17/24 6:30 pm (TELEHEALTH - WILL CALL YOU BETWEEN 9 am to 8 pm) Patient Instructions/Handouts: Laparoscopic Cholecystectomy (GEN), Deep Vein Thrombosis Prevention (DC) Activity/Diet/Wound Care/Special Instructions: TELEHEALTH - DR WILL CALL YOU BETWEEN 9 am to 8 pm NO LONG DRIVES OR AIRPLANE RIDES OVER 60 MINUTES FOR THE NEXT 2 WEEKS, 01/26/24, DUE TO HIGH RISK OF PULMONARY EMBOLISM/DVTs May drive in 72 hrs, 01/12/24 Recommend low-fat diet for the next 2 days. No lifting over 10 pounds in 2 weeks until 01/26/24, May shower. No bath tub soaks for two weeks until 01/26/24, Use Tylenol, simethicone and ibuprofen or Aleve scheduled for the next 24-48 hours for best pain relief. Use ice along incisions for today to prevent swelling. Discharge Disposition: HOME SELF-CARE
[2024-01-12] MEDS: HYDROmorphone 0.5 MG/0.5 ML SYRINGE IVP PRN (14:19)
[2024-01-12] MEDS: HYDROcodone/APAP 5-325MG 1 EACH TAB PO STA (14:59)
[2024-01-12 15:58] VITALS: RESP 20
[2024-01-12 16:23] VITALS: BP 126/69; PULSE 66
== END 2024-01-12 16:37 | disposition home or self-care (01) ==
LOC: OR 10:27
PROVIDERS: ATTEND Surgery Plastic and Reconstructive Surgery
DX: K80.10 Calculus of gallbladder with chronic cholecystitis without obstruction (principal); G43.909 Migraine, unspecified, not intractable, without status migrainosus; F17.210 Nicotine dependence, cigarettes, uncomplicated; Z88.8 Allergy status to other drugs, medicaments and biological substances; Z98.51 Tubal ligation status
CPT/HCPCS: 47563; S2900; 80053; 85025; 88304